=== PATIENT | female | born 1940 | race African-American/Black ===

== ENCOUNTER 2018-11-05 15:31 | Inpatient (IN) | payer MEDICARE, OTHER ==
[~2018-11-05] VITALS: Ht 160 cm; Wt 62.8 kg
[2018-11-05] MEDS ORDERED: COLACE100 MG ORAL (15:33)
[2018-11-05] MEDS ORDERED: DEPAKOTE250 MG PO (15:33)
[2018-11-05] MEDS ORDERED: LISINOPRIL10 MG ORAL (15:33)
[2018-11-05] MEDS ORDERED: HYDROCHLOROTHIA25 MG ORAL (15:33)
[2018-11-05] MEDS ORDERED: ATORVASTATIN CA10 MG ORAL (15:33)
[2018-11-05] MEDS ORDERED: METFORMIN HCL1000 M1 ORAL (15:33)
[2018-11-05] MEDS ORDERED: RISPERDAL2 MG ORAL (15:33)
[2018-11-05 15:36] VITALS: BP 114/75
--- NOTE | 2018-11-05 15:36 | NUR ---
ED Nurse Note: PT BROUGHT IN BY EMS FROM [facility] DUE TO POOR ORAL INTAKE SINCE THIS MORNING AND WEAKNESS STARTED LAST NIGHT. SENT BY DR KING. PT IS AWAKE BUT NON VERBAL, WITHDRAWS TO PAINFUL STIMULI SUCH HAND SQUEEZING. SKIN IS DRY AND WARM.
--- NOTE | 2018-11-05 16:02 | NUR ---
ED Nurse Note: COLLECTED BLOOD/URINE THEN SENT.
[2018-11-05 16:27] LABS: APPEARANCE,URINE CLEAR; BILIRUBIN, URINE NEGATIVE (NEGATIVE); EOSINOPHILS % (AUTO) 0.8 % (0.0-3.0); GLUCOSE, URINE (UA) NEGATIVE (NEGATIVE); HEMATOCRIT 34.7 % (37.0-47.0); HEMOGLOBIN 11.7 G/DL (12.0-16.0); KETONES,URINE 2+ (NEGATIVE); LEUKOCYTE ESTERASE ,URINE NEGATIVE (NEGATIVE); MEAN CORPUSCULAR VOLUME 89 FL (80-99); MONOCYTES % (AUTO) 7.4 % (1.0-10.0); NEUTROPHILS % (AUTO) 67.8 % (45.0-75.0); NITRITE,URINE NEGATIVE (NEGATIVE); PH,URINE 5 (4.5-8.0); PLATELET COUNT 183 K/UL (150-450); PROTEIN,URINE NEGATIVE (NEGATIVE); RED BLOOD COUNT 3.89 M/UL (4.20-5.40); RED CELL DISTRIBUTION WIDTH 12.7 % (11.6-14.8); UROBILINOGEN,URINE 1 MG/DL (0.0-1.0); WHITE BLOOD COUNT 6.7 K/UL (4.8-10.8)
[2018-11-05 16:28] LABS: COLOR,URINE YELLOW
--- NOTE | 2018-11-05 16:28 | Emergency Room Report ---
History of Present Illness General Chief Complaint: Generalized Weakness Source: Medical Record, EMS Present Illness HPI 78-year-old female history of dementia presents with failure to thrive, refusing to eat unknown start time, no aggravating or alleviating factors, severity is severe, history is limited secondary to patient's condition, spoke with Dr. Cole who wants patient evaluated Allergies: Coded Allergies: No Known Allergies (Unverified , 11/05/18) Patient History Limited by: medical condition - Dementia Past Medical History: see triage record Now: No Reviewed Nursing Documentation: PMH: Agreed; PSxH: Agreed Nursing Documentation-PMH Past Medical History: No History, Except For Hx Hypertension: Yes Hx COPD: Yes Hx Diabetes: Yes History Of Psychiatric Problem: Yes - PSYCHOSIS Review of Systems All Other Systems: limited - Dementia Physical Exam Vital Signs Date Time Temp Pulse Resp B/P (MAP) Pulse Ox O2 Delivery O2 Flow Rate FiO2 11/05/18 15:26 98.1 91 18 107/74 (85) 99 Room Air Sp02 EP Interpretation: reviewed, normal General Appearance: no apparent distress, alert Head: normocephalic, atraumatic Eyes: bilateral eye PERRL, bilateral eye EOMI ENT: uvula midline, dry mucus membranes Neck: supple, thyroid normal, supple/symm/no masses Respiratory: lungs clear, no respiratory distress, no retraction, no accessory muscle use Cardiovascular #1: normal peripheral pulses, regular rate, rhythm, no edema, no gallop, no murmur Gastrointestinal: non tender, soft, no guarding, no rebound Musculoskeletal: normal inspection Neurologic: alert, responsive, other - Says yes sometimes, refusing to answer questions Psychiatric: mood/affect normal Skin: no rash, warm/dry Medical Decision Making Diagnostic Impression: Primary Impression: Failure to thrive in adult Additional Impressions: General weakness Dehydration ER Course 78-year-old female presenting with altered mental status, dementia, refusing to eat, ketones positive, labs show dehydration and ketones in the urine, will admit patient for IV fluids and hydration, patient endorsed to Dr. Cole at 4: 46pm Laboratory Tests Test 11/05/18 15:50 White Blood Count 6.7 K/UL (4.8-10.8) Red Blood Count 3.89 M/UL (4.20-5.40) L Hemoglobin 11.7 G/DL (12.0-16.0) L Hematocrit 34.7 % (37.0-47.0) L Mean Corpuscular Volume 89 FL (80-99) Mean Corpuscular Hemoglobin 30.0 PG (27.0-31.0) Mean Corpuscular Hemoglobin Concent 33.6 G/DL (32.0-36.0) Red Cell Distribution Width 12.7 % (11.6-14.8) Platelet Count 183 K/UL (150-450) Mean Platelet Volume 6.9 FL (6.5-10.1) Neutrophils (%) (Auto) 67.8 % (45.0-75.0) Lymphocytes (%) (Auto) 23.0 % (20.0-45.0) Monocytes (%) (Auto) 7.4 % (1.0-10.0) Eosinophils (%) (Auto) 0.8 % (0.0-3.0) Basophils (%) (Auto) 1.0 % (0.0-2.0) Prothrombin Time 10.0 SEC (9.30-11.50) Prothrombin Time INR 0.9 (0.9-1.1) PTT 28 SEC (23-33) Urine Color Yellow Urine Appearance Clear Urine pH 5 (4.5-8.0) Urine Specific [place] 1.020 (1.005-1.035) Urine Protein Negative (NEGATIVE) Urine Glucose (UA) Negative (NEGATIVE) Urine Ketones 2+ (NEGATIVE) H Urine Blood Negative (NEGATIVE) Urine Nitrite Negative (NEGATIVE) Urine Bilirubin Negative (NEGATIVE) Urine Urobilinogen 1 MG/DL (0.0-1.0) H Urine Leukocyte Esterase Negative (NEGATIVE) Sodium Level 145 MMOL/L (136-145) Potassium Level 3.7 MMOL/L (3.5-5.1) Chloride Level 104 MMOL/L (98-107) Carbon Dioxide Level 36 MMOL/L (21-32) H Anion Gap 5 mmol/L (5-15) Blood Urea Nitrogen 23 mg/dL (7-18) H Creatinine 1.0 MG/DL (0.55-1.30) Estimate Glomerular Filtration Rate mL/min (>60) Glucose Level 91 MG/DL (74-106) Lactic Acid Level 1.10 mmol/L (0.4-2.0) Calcium Level 9.7 MG/DL (8.5-10.1) Phosphorus Level 3.3 MG/DL (2.5-4.9) Magnesium Level 1.6 MG/DL (1.8-2.4) L Total Bilirubin 0.4 MG/DL (0.2-1.0) Aspartate Amino Transferase (AST) 21 U/L (15-37) Alanine Aminotransferase (ALT) 11 U/L (12-78) L Alkaline Phosphatase 55 U/L (46-116) Total Creatine Kinase 217 U/L (26-308) Creatine Kinase MB 3.9 NG/ML (0.0-3.6) H Creatine Kinase MB Relative Index 1.7 Troponin I 0.006 ng/mL (0.000-0.056) Pro-B-Type Natriuretic Peptide 61 pg/mL (0-125) Total Protein 6.8 G/DL (6.4-8.2) Albumin 3.0 G/DL (3.4-5.0) L Globulin 3.8 g/dL Albumin/Globulin Ratio 0.8 (1.0-2.7) L Lipase 81 U/L (73-393) EKG Diagnostic Results EKG Time: 15:41 EP Interpretation: NSR rate 86, qtc 437, no acute st elevations, normal axis Rate: normal Rhythm: NSR ST Segments: no acute changes ASA given to the pt in ED: No Rhythm Strip Diag. Results Rhythm Strip Time: 16:28 EP Interpretation: yes Rate: 76 Rhythm: NSR, no PVC's, no ectopy Chest X-Ray Diagnostic Results Chest X-Ray Diagnostic Results : Chest X-Ray Ordered: Yes # of Views/Limited/Complete: 1 View Indication: Other - failure to thrive EP Interpretation: Yes Interpretation: no consolidation, no effusion, no pneumothorax, no acute cardiopulmonary disease Impression: No acute disease Electronically Signed by: Umesh Huerta MD Last Vital Signs Date Time Temp Pulse Resp B/P (MAP) Pulse Ox O2 Delivery O2 Flow Rate FiO2 11/05/18 15:36 89 14 Room Air 11/05/18 15:36 98.4 114/75 100 Disposition: ADMITTED INPATIENT Condition: Stable Referrals: Marvin Cole MD (PCP) Umesh Huerta MD Nov 05, 2018 16:28
[2018-11-05 16:31] LABS: ANION GAP 5 mmol/L (5-15); BLOOD UREA NITROGEN 23 mg/dL (7-18); CALCIUM 9.7 MG/DL (8.5-10.1); CARBON DIOXIDE 36 MMOL/L (21-32); CHLORIDE 104 MMOL/L (98-107); INR 0.9 (0.9-1.1); POTASSIUM 3.7 MMOL/L (3.5-5.1); SODIUM 145 MMOL/L (136-145)
[2018-11-05 16:45] LABS: ALANINE AMINOTRANSFERASE 11 U/L (12-78); ALBUMIN/GLOBULIN RATIO 0.8 (1.0-2.7); ALKALINE PHOSPHATASE 55 U/L (46-116); ASPARTATE AMINO TRANSFERASE 21 U/L (15-37); BILIRUBIN,TOTAL 0.4 MG/DL (0.2-1.0); CKMB 3.9 NG/ML (0.0-3.6); CREATINE KINASE 217 U/L (26-308); PHOSPHORUS 3.3 MG/DL (2.5-4.9)
[2018-11-05 17:30] VITALS: BP 128/84
--- NOTE | 2018-11-05 17:48 | Diagnostic Imaging Report ---
Indication: Chest pain Technique: One view of the chest Comparison: none Findings: No acute infiltrates, effusions, or congestion. Tortuous calcified aorta. Normal heart size. Upper mediastinum unremarkable. Impression: No acute process.
--- NOTE | 2018-11-05 18:11 | NUR ---
ED Nurse Note: REPORT GIVEN TO ERICK DIOP [address]
--- NOTE | 2018-11-05 18:22 | NUR ---
ED Nurse Note: PT TRANSFERRED TO MED SURG UNIT WITH [facility] MACHINE OPERATOR AND BELONGINGS SENT. VSS.
--- NOTE | 2018-11-05 18:42 | NUR ---
NURSE NOTES: Received pt from ED @1830. pt awake, A/O x 0, nonverbal, calm. no SOB noted. healed sacral ulcer noted, optifoam on. bed in low position, bed alarm on. will give report to oncoming nurse.
[2018-11-05 18:48] VITALS: BP 113/69
--- NOTE | 2018-11-05 19:13 | NUR ---
CASE MANAGEMENT: REVIEW 78Y/F BIBA FROM [facility] CC: GENERALIZED WEAKNESS . REFUSING TO EAT SI: FAILURE TO THRIVE . DEHYDRATION T 98.4 HR 75 RR 14 BP 107/74 SAT 99% ROOM AIR H/H 11.7/34.7 BUN 23 MAG 1.6 IS: NS IVF BOLUS X1 PATIENT ADMITTED TO MED/SURG UNIT 11/05/2018 DCP: PATIENT IS FROM [facility]
--- NOTE | 2018-11-05 19:44 | NUR ---
NURSE NOTES: Received patient from CHIKIS Lovelace. Pt is fatigue and resting in bed. AAO x 0, nonverbal. On room air. Pt is on fall precaution, sz precaution, and aspiration precaution. Swaps pending. IV on L FA intact. Noted healed sacral ulcer. Dr. Saavedra visited pt and received admission order. Bed locked, lowest position, alarm on, side rails up x 2, call light within reach. Will continue to monitor.
[2018-11-05 20:00] VITALS: BP 116/55
--- NOTE | 2018-11-05 20:31 | NUR ---
NURSE NOTES: Pt noted bradycardia 47 apical pulse manually @ 2014. Blood sugar 77, 95% O2, 95.7F, 116/55BP. Notified Dr. Cole. Waiting for call back.
--- NOTE | 2018-11-05 20:40 | NUR ---
NURSE NOTES: Per Dr. Cole, let Dr. Main know that pt has bradycardia. Called Dr. Main and received order for TSH, troponin, and 2D echo in the morning. Per Dr. Main, transfer pt to [facility]. Addendum: 11/06/18 at 0007 by EMMA MATOS RN RN NURSE NOTES: Dr. Main ordered EKG as well.
[2018-11-05] MEDS: NovoLOG Insulin Flexpen SUBQ SCH (21:00)
--- NOTE | 2018-11-05 21:35 | NUR ---
NURSE NOTES: Per Dr. Main order, Pt is emergent transferred to tele room 220-2. Report given to CHIKIS Marlow and endorsed taking wound picture. Pt is awake, calm, but not verbal responsive. All belongings are with pt.
[2018-11-05 21:45] VITALS: BP 117/67
--- NOTE | 2018-11-05 21:45 | NUR ---
NURSE NOTES: Received patient from [facility]. Patient on room air, apical pulse 58, placed on diagnostic cardiac sonographer, sinus rhythm, LFA IV #20 intact, patent, no infiltration, 1/2NS infusing at 70ml/hr. SCDs off pending venous duplex. Patient is resistant to care, occasionally verbalizing a few words such as "what are you doing?" Patient does not respond to direct questioning. Unable to assess orientation. Bed alarm on, locked in low position, call light within reach.
--- NOTE | 2018-11-05 22:15 | NUR ---
NURSE NOTES: EKG completed, sinus rhythm. Patient moved to room closer to nurse's station. Patient is a fall risk. On seizure precautions, rails padded.
--- NOTE | 2018-11-05 23:30 | History and Physical Report ---
DATE OF ADMISSION: 11/05/2018 HISTORY OF PRESENT ILLNESS: The patient is nonverbal. . The patient is also contracted. The patient is admitted for dehydration, electrolyte abnormality, hypotension, not eating, and UTI. Again, cannot get any history from the patient. PAST MEDICAL HISTORY: Organic brain syndrome, mood disorder, constipation, hypertension, NIDDM, psychosis, contractures, hyperlipidemia. PAST SURGICAL HISTORY: None known. ALLERGIES: No known allergies. MEDICATIONS: Lipitor, Depakote, Colace, hydrochlorothiazide, lisinopril, metformin, Risperdal. FAMILY HISTORY: Noncontributory. SOCIAL HISTORY: Denies history of smoking, alcohol, or illicit drugs; however, the patient is a poor historian. REVIEW OF SYSTEMS: The patient is a poor historian, cannot rely up on that. PHYSICAL EXAMINATION: VITAL SIGNS: Temperature 98.1, pulse 91, blood pressure 107/75. HEENT: PERRLA. NECK: Supple. No lymphadenopathy. CHEST: Clear to auscultation. CARDIOVASCULAR: Regular rate and rhythm. No murmurs or extra sounds. GASTROINTESTINAL: Soft. Distended. Positive bowel sounds. No organomegaly. Abdomen is soft. EXTREMITIES: No edema. Reflexes equal on both sides. NEUROLOGIC: Non-oriented. The patient is mostly nonverbal. LABORATORY DATA: WBC of 6.7, hemoglobin 11.7, platelets 183. Sodium 145, potassium 3.7, BUN of 23, creatinine 1, glucose of 91. ASSESSMENT AND PLAN: UTI, dehydration, hypotension, electrolyte imbalance. I have asked basically Dr. Main, Dr. Tom Starks, Dr. Jeff, and Dr. Moreira to see the patient for the above-mentioned diagnoses and treatment as well as for bradycardia. Marvin Cole M.D. DR: ELIESER JOB#: [id number] CC:
[2018-11-06] VITALS: BP 119/59
[2018-11-06 04:00] VITALS: BP 114/60
[2018-11-06] MEDS: NovoLOG Insulin Flexpen SUBQ SCH ×4 (06:30→20:57)
--- NOTE | 2018-11-06 06:44 | NUR ---
NURSE NOTES: Blood sugar 57, LOC at baseline. Administered D50 IVP.
--- NOTE | 2018-11-06 07:06 | NUR ---
NURSE NOTES: Blood sugar 187.
[2018-11-06 07:40] LABS: BASOPHILS % (AUTO) 1.2 % (0.0-2.0); EOSINOPHILS % (AUTO) 3.2 % (0.0-3.0); HEMATOCRIT 32.7 % (37.0-47.0); HEMOGLOBIN 10.5 G/DL (12.0-16.0); LYMPHOCYTES % (AUTO) 23.5 % (20.0-45.0); MEAN CORPUSCULAR VOLUME 92 FL (80-99); MONOCYTES % (AUTO) 11.4 % (1.0-10.0); NEUTROPHILS % (AUTO) 60.8 % (45.0-75.0); PLATELET COUNT 161 K/UL (150-450); RED BLOOD COUNT 3.55 M/UL (4.20-5.40); RED CELL DISTRIBUTION WIDTH 13.3 % (11.6-14.8); WHITE BLOOD COUNT 5.2 K/UL (4.8-10.8)
--- NOTE | 2018-11-06 07:58 | NUR ---
HAND-OFF: Report given to [place] DIOP.
[2018-11-06 08:00] VITALS: BP 126/81
--- NOTE | 2018-11-06 08:00 | NUR ---
NURSE NOTES: Received report from Kashmir/RN, Patient is awake, AO x 2. No acute distress noted. IV site intact, no bleeding or infiltration noted. Patient has history of seizure, bed padded, all seizure precaution in place. Bed in low position and locked. Call light and personal belonging within reach. Will continue plan of care.
[2018-11-06 08:10] LABS: ALANINE AMINOTRANSFERASE 11 U/L (12-78); ALBUMIN 2.7 G/DL (3.4-5.0); ALBUMIN/GLOBULIN RATIO 0.8 (1.0-2.7); ALKALINE PHOSPHATASE 48 U/L (46-116); ANION GAP 4 mmol/L (5-15); ASPARTATE AMINO TRANSFERASE 19 U/L (15-37); BILIRUBIN,TOTAL 0.4 MG/DL (0.2-1.0); BLOOD UREA NITROGEN 20 mg/dL (7-18); CALCIUM 9.3 MG/DL (8.5-10.1); CARBON DIOXIDE 34 MMOL/L (21-32); CHLORIDE 105 MMOL/L (98-107); CREATININE 0.8 MG/DL (0.55-1.30); POTASSIUM 3.5 MMOL/L (3.5-5.1); SODIUM 142 MMOL/L (136-145)
--- NOTE | 2018-11-06 08:50 | NUR ---
NURSE NOTES: Patient refused Colace.
[2018-11-06] MEDS ORDERED: Docusate 250mg cap ORAL SCH (09:00)
--- NOTE | 2018-11-06 11:20 | General Progress Note ---
Progress Note Progress Note pt seen and examined full note dictated nurse on her bedside plan was discussed Maday Moreira MD Nov 06, 2018 11:20
[2018-11-06] MEDS ORDERED: D5 1/2NS 1,000 ML IV SCH (11:30)
--- NOTE | 2018-11-06 11:34 | NUR ---
NURSE NOTES: Patient refused 2D Echo.
[2018-11-06 12:00] VITALS: BP 127/63
--- NOTE | 2018-11-06 12:15 | NUR ---
NURSE NOTES: Patient became hypoglycemic 64, Dextrose 50% 25ml given.
--- NOTE | 2018-11-06 12:40 | NUR ---
NURSE NOTES: Check back blood sugar, and it's 119
--- NOTE | 2018-11-06 12:43 | NUR ---
CARDIOLOGY Patient was combative. Unable to do 2D echo.
--- NOTE | 2018-11-06 14:15 | Consultation ---
DATE OF CONSULTATION: 11/06/2018 CONSULTING PHYSICIAN: Chino Jeff M.D. CHIEF COMPLAINT: Failure to thrive. HISTORY OF PRESENT ILLNESS: Most of the history per chart. This is a 78-year-old female with past medical history of dementia, hypertension, and questionable diabetes, was referred to the hospital because mainly she was not eating and she was referred for failure to thrive. PAST MEDICAL HISTORY: 1. Dementia. 2. Hypertension. 3. Questionable diabetes. ALLERGIES: No known allergies. MEDICATIONS: Please see medication reconciliation list. SOCIAL HISTORY: She currently lives in a [facility]. No recent history of tobacco, alcohol, or IV drug abuse. PAST SURGICAL HISTORY: Unknown. REVIEW OF SYSTEMS: Unable to obtain. PHYSICAL EXAMINATION: VITAL SIGNS: Temperature 97.5, pulse 61, respirations 18, blood pressure is 126/81. HEENT: Normocephalic and atraumatic. Mild pale conjunctivae. NECK: Supple. No evidence of obvious lymphadenopathy. CARDIOVASCULAR: Regular rhythm. Plus S1 and S2. LUNGS: Decreased breath sounds bilaterally based on the supine exam. ABDOMEN: Soft, nontender. No rebound. No guarding. No peritoneal signs. EXTREMITIES: No cyanosis, no clubbing, no edema. LABORATORY DATA: White count is 5.2, hemoglobin 10.5, hematocrit 32, platelet count is 161. Albumin is low at 2.7. BUN is 20, creatinine is 0.8. ASSESSMENT AND PLAN: This is a 78-year-old female with anemia, failure to thrive, dementia. Plan, anemia workup. Encourage eating. Monitor for p.o. intake. The patient most probably will need a G-tube placement given this evidence of hypoalbuminemia, anemia, malnutrition, and dehydration. Plan to get a consent and place it on Thursday if consent is obtainable. I want to thank, Dr. Marvin Cole, for this kind referral. Chino Jeff M.D. DR: FLOR JOB#: [id number] CC: Marvin Cole M.D.; Fax#: [phone]
--- NOTE | 2018-11-06 14:58 | Cardiac Electrophysiology PN ---
Subjective Subjective [id number] Objective Last 24 Hour Vital Signs Date Time Temp Pulse Resp B/P (MAP) Pulse Ox O2 Delivery O2 Flow Rate FiO2 11/06/18 12:00 55 11/06/18 12:00 97.3 52 18 127/63 (84) 96 11/06/18 09:00 Room Air 11/06/18 08:00 53 11/06/18 08:00 97.5 61 18 126/81 (96) 92 11/06/18 04:00 96.8 66 18 114/60 (78) 96 11/06/18 03:41 56 11/06/18 00:00 96.9 62 18 119/59 (79) 97 11/05/18 23:31 57 11/05/18 21:47 60 11/05/18 21:45 97.4 57 18 117/67 (84) 11/05/18 21:00 Room Air 11/05/18 20:00 95.7 45 16 116/55 (75) 95 11/05/18 18:48 98.2 80 18 113/69 (84) 98 11/05/18 18:47 Room Air 11/05/18 18:22 98.5 79 17 122/78 98 Room Air 11/05/18 17:30 98.2 75 19 128/84 99 Room Air 11/05/18 15:36 89 14 Room Air 11/05/18 15:36 98.4 89 14 114/75 100 Room Air 11/05/18 15:26 98.1 91 18 107/74 (85) 99 Room Air Intake and Output 11/05/18 11/06/18 19:00 07:00 Intake Total 1000 ml Balance 1000 ml Intake IV Total 1000 ml # Voids 1 2 Laboratory Tests Test 11/05/18 15:50 11/06/18 06:39 White Blood Count 6.7 K/UL (4.8-10.8) 5.2 K/UL (4.8-10.8) Red Blood Count 3.89 M/UL (4.20-5.40) L 3.55 M/UL (4.20-5.40) L Hemoglobin 11.7 G/DL (12.0-16.0) L 10.5 G/DL (12.0-16.0) L Hematocrit 34.7 % (37.0-47.0) L 32.7 % (37.0-47.0) L Mean Corpuscular Volume 89 FL (80-99) 92 FL (80-99) Mean Corpuscular Hemoglobin 30.0 PG (27.0-31.0) 29.6 PG (27.0-31.0) Mean Corpuscular Hemoglobin Concent 33.6 G/DL (32.0-36.0) 32.1 G/DL (32.0-36.0) Red Cell Distribution Width 12.7 % (11.6-14.8) 13.3 % (11.6-14.8) Platelet Count 183 K/UL (150-450) 161 K/UL (150-450) Mean Platelet Volume 6.9 FL (6.5-10.1) 6.2 FL (6.5-10.1) L Neutrophils (%) (Auto) 67.8 % (45.0-75.0) 60.8 % (45.0-75.0) Lymphocytes (%) (Auto) 23.0 % (20.0-45.0) 23.5 % (20.0-45.0) Monocytes (%) (Auto) 7.4 % (1.0-10.0) 11.4 % (1.0-10.0) H Eosinophils (%) (Auto) 0.8 % (0.0-3.0) 3.2 % (0.0-3.0) H Basophils (%) (Auto) 1.0 % (0.0-2.0) 1.2 % (0.0-2.0) Prothrombin Time 10.0 SEC (9.30-11.50) Prothromb Time International Ratio 0.9 (0.9-1.1) Activated Partial Thromboplast Time 28 SEC (23-33) Urine Color Yellow Urine Appearance Clear Urine pH 5 (4.5-8.0) Urine Specific [place] 1.020 (1.005-1.035) Urine Protein Negative (NEGATIVE) Urine Glucose (UA) Negative (NEGATIVE) Urine Ketones 2+ (NEGATIVE) H Urine Blood Negative (NEGATIVE) Urine Nitrite Negative (NEGATIVE) Urine Bilirubin Negative (NEGATIVE) Urine Urobilinogen 1 MG/DL (0.0-1.0) H Urine Leukocyte Esterase Negative (NEGATIVE) Sodium Level 145 MMOL/L (136-145) 142 MMOL/L (136-145) Potassium Level 3.7 MMOL/L (3.5-5.1) 3.5 MMOL/L (3.5-5.1) Chloride Level 104 MMOL/L (98-107) 105 MMOL/L (98-107) Carbon Dioxide Level 36 MMOL/L (21-32) H 34 MMOL/L (21-32) H Anion Gap 5 mmol/L (5-15) 4 mmol/L (5-15) L Blood Urea Nitrogen 23 mg/dL (7-18) H 20 mg/dL (7-18) H Creatinine 1.0 MG/DL (0.55-1.30) 0.8 MG/DL (0.55-1.30) Estimat Glomerular Filtration Rate mL/min (>60) mL/min (>60) Glucose Level 91 MG/DL (74-106) 63 MG/DL (74-106) L Hemoglobin A1c 5.4 % (4.3-6.0) Lactic Acid Level 1.10 mmol/L (0.4-2.0) Calcium Level 9.7 MG/DL (8.5-10.1) 9.3 MG/DL (8.5-10.1) Phosphorus Level 3.3 MG/DL (2.5-4.9) Magnesium Level 1.6 MG/DL (1.8-2.4) L Total Bilirubin 0.4 MG/DL (0.2-1.0) 0.4 MG/DL (0.2-1.0) Aspartate Amino Transf (AST/SGOT) 21 U/L (15-37) 19 U/L (15-37) Alanine Aminotransferase (ALT/SGPT) 11 U/L (12-78) L 11 U/L (12-78) L Alkaline Phosphatase 55 U/L (46-116) 48 U/L (46-116) Total Creatine Kinase 217 U/L (26-308) Creatine Kinase MB 3.9 NG/ML (0.0-3.6) H Creatine Kinase MB Relative Index 1.7 Troponin I 0.006 ng/mL (0.000-0.056) 0.011 ng/mL (0.000-0.056) Pro-B-Type Natriuretic Peptide 61 pg/mL (0-125) Total Protein 6.8 G/DL (6.4-8.2) 5.9 G/DL (6.4-8.2) L Albumin 3.0 G/DL (3.4-5.0) L 2.7 G/DL (3.4-5.0) L Globulin 3.8 g/dL 3.2 g/dL Albumin/Globulin Ratio 0.8 (1.0-2.7) L 0.8 (1.0-2.7) L Lipase 81 U/L (73-393) Thyroid Stimulating Hormone (TSH) 1.438 uiU/mL (0.358-3.740) Michael Main MD Nov 06, 2018 14:58
[2018-11-06 16:00] VITALS: BP 108/60
--- NOTE | 2018-11-06 19:14 | NUR ---
HAND-OFF: Report given to Rhiannon/RN, Patient is in stable condition, Endorsed plan of care.
[2018-11-06 20:00] VITALS: BP 158/71
--- NOTE | 2018-11-06 20:00 | NUR ---
NURSE NOTES: RECEIVED PATIENT LYING IN BED, AWAKE, ALERT/ORIENTED TO PERSON, NOTED WITH DELAYED SPEECH, REALITY ORIENTATION PROVIDED DURING ASSESSMENT, DENIES PAIN, NO SIGNS AND SYMPTOMS OF ACUTE CARDIO RESPIRATORY DISTRESS/SHORTNESS OF BREATH, NO PERIPHERAL EDEMA NOTED. IV SITE INTACT TO LEFT FOREARM/GAUGE 20, NO REDNESS/SWELLING NOTED, TOLERATING IV FLUIDS. ABDOMEN SOFT/NON DISTENDED/NON TENDER/BOWEL SOUNDS AUDIBLE, NO REPORT OF N/V/D. COMFORT CARE PROVIDED. SIDE RAILS UP X3/BED IN LOWEST POSITION FOR SAFETY. CALL LIGHT WITHIN REACH, FREQUENT ROUNDING FOR SAFETY/NEEDS. NAD.
--- NOTE | 2018-11-06 22:15 | Consultation ---
DATE OF CONSULTATION: 11/06/2018 NEPHROLOGY CONSULTATION CONSULTING PHYSICIAN: Maday Moreira M.D. REFERRING PHYSICIAN: Marvin Cole M.D. REASON FOR CONSULTATION: Acute renal failure, hypokalemia. HISTORY OF PRESENT ILLNESS: The patient is an unfortunate 78-year-old, female with past medical history significant for history of diabetes, hypertension, history of hyperlipidemia who was transferred [facility] for evaluation of failure to thrive and dehydration. Upon arrival in the ER, the patient was found to have blood pressure 107/74, pulse was 91, respiratory rate of 18, the patient was afebrile. The patient was then consequently admitted in the hospital, found to be and having acute renal failure. I was called for management of renal disease and electrolyte imbalance. Unfortunately, the patient is not able to provide any history for me so most of my history obtained through reviewing the records. PAST MEDICAL HISTORY: 1. Hypertension. 2. Diabetes. 3. History of dementia. 4. History of COPD. 5. History of psychiatric disease. MEDICATIONS: Medication list was reviewed. ALLERGIES: No known drug allergies. SOCIAL HISTORY: She lives at [facility]. There is no current history of tobacco, alcohol, or drug use. FAMILY HISTORY: Noncontributory. REVIEW OF SYSTEMS: As I mentioned is limited due to patient's condition and mental status. PHYSICAL EXAMINATION: VITAL SIGNS: The patient has temperature of 96, blood pressure 108/60, pulse rate of 50. HEAD AND NECK: Bitemporal wasting. Extraocular movements intact. Pupils are reactive to light and accommodation. Mucous membranes are dry. LUNGS: Clear to auscultation. CARDIAC: Regular rate and rhythm. S1 and S2 normal. No murmurs or rubs. ABDOMEN: Soft, nontender, nondistended. EXTREMITIES: No edema. No clubbing. No cyanosis. LABORATORY AND DIAGNOSTIC DATA: Lab value reveal WBC count of 5.2, hemoglobin of 10.5, hematocrit of 32, platelet count 161,000. Chemistry revealed sodium of 142, potassium 3.5, chloride 105, bicarb 34, BUN of 20, creatinine of 0.8, calcium of 9.3. Total protein of 5.9, albumin of 2.7. TSH is 1.43. UA revealed specific gravity of 1.020, ketones 2+, pH of 5, no WBC, no RBC. ASSESSMENT: 1. Failure to thrive. 2. Prerenal azotemia. 3. Dehydration 4. . 5. Diabetes. PLAN: Plan for the patient to the obtain UA. Check the random urine, protein and creatinine ratio to calculate the proteinuria. Check the urine sodium and creatinine to calculate fractional excretion of sodium. Start the patient on IV fluids. Check the patient for microalbuminuria. Avoid any NSAID and nephrotoxic. At the end, I would like to thank Dr. Cole, for allowing me to participate in the care of this patient. Maday Moreira M.D. DR: Maria Victoria JOB#: [id number] CC:
--- NOTE | 2018-11-06 23:06 | General Progress Note ---
Assessment/Plan Problem List: (1) Dehydration ICD Codes: E86.0 - Dehydration SNOMED: 55478913 (2) General weakness ICD Codes: R53.1 - Weakness SNOMED: 43525288 (3) Failure to thrive in adult ICD Codes: R62.7 - Adult failure to thrive SNOMED: 776362172 (4) Bradycardia ICD Codes: R00.1 - Bradycardia, unspecified SNOMED: 48966415 Status: progressing Assessment/Plan: transferrred to [facility] for bradycardia dehydration FTT poor historian reviewed chart and labs Subjective ROS Limited/Unobtainable: Yes Allergies: Coded Allergies: No Known Allergies (Unverified , 11/05/18) Objective Last 24 Hour Vital Signs Date Time Temp Pulse Resp B/P (MAP) Pulse Ox O2 Delivery O2 Flow Rate FiO2 11/06/18 21:00 Room Air 11/06/18 20:00 97.5 57 18 158/71 (100) 96 11/06/18 16:00 48 11/06/18 16:00 96.4 50 18 108/60 (76) 94 11/06/18 12:00 55 11/06/18 12:00 97.3 52 18 127/63 (84) 96 11/06/18 09:00 Room Air 11/06/18 08:00 53 11/06/18 08:00 97.5 61 18 126/81 (96) 92 11/06/18 04:00 96.8 66 18 114/60 (78) 96 11/06/18 03:41 56 11/06/18 00:00 96.9 62 18 119/59 (79) 97 11/05/18 23:31 57 Intake and Output 11/05/18 11/06/18 19:00 07:00 Intake Total 1000 ml Balance 1000 ml IV Total 1000 ml # Voids 1 2 Laboratory Tests 11/06/18 06:39: White Blood Count 5.2, Red Blood Count 3.55L, Hemoglobin 10.5L, Hematocrit 32.7L , Mean Corpuscular Volume 92, Mean Corpuscular Hemoglobin 29.6, Mean Corpuscular Hemoglobin Concent 32.1, Red Cell Distribution Width 13.3, Platelet Count 161, Mean Platelet Volume 6.2L, Neutrophils (%) (Auto) 60.8, Lymphocytes ( %) (Auto) 23.5, Monocytes (%) (Auto) 11.4H, Eosinophils (%) (Auto) 3.2H, Basophils (%) (Auto) 1.2, Sodium Level 142, Potassium Level 3.5, Chloride Level 105, Carbon Dioxide Level 34H, Anion Gap 4L, Blood Urea Nitrogen 20H, Creatinine 0.8, Estimat Glomerular Filtration Rate , Glucose Level 63L, Calcium Level 9.3, Total Bilirubin 0.4, Aspartate Amino Transf (AST/SGOT) 19, Alanine Aminotransferase (ALT/SGPT) 11L, Alkaline Phosphatase 48, Troponin I 0.011, Total Protein 5.9L, Albumin 2.7L, Globulin 3.2, Albumin/Globulin Ratio 0.8L, Thyroid Stimulating Hormone (TSH) 1.438 Height (Feet): 5 Height (Inches): 4.00 Weight (Pounds): 110 Cardiovascular: normal rate Respiratory/Chest: lungs clear Marvin Cole MD Nov 06, 2018 23:06
[2018-11-07] VITALS: BP 121/82
[2018-11-07] MEDS: D5 1/2NS 1,000 ML IV SCH ×2 (01:28→15:03)
--- NOTE | 2018-11-07 02:30 | Consultation ---
DATE OF CONSULTATION: 11/06/2018 "NOTE: POOR AUDIO QUALITY" ENDOCRINOLOGY CONSULTATION CONSULTING PHYSICIAN: Naveen Sebastian M.D. REFERRING PHYSICIAN: Marvin Cole M.D. REASON FOR CONSULTATION: I was asked to see this 78-year-old white female referred by Dr. Marvin Cole in Endocrinology consultation for evaluation and management of type 2 diabetes mellitus MEDICATIONS: Metformin 1000 mg p.o. b.i.d., lisinopril 20 mg, Lipitor 10 mg, daily. FAMILY HISTORY: Unable to be determined. PERSONAL HISTORY: Unable to be determined. REVIEW OF SYSTEMS: Unable to be determined. PHYSICAL EXAMINATION: GENERAL: The patient is in no acute distress. VITAL SIGNS: Blood pressure is 150/70, pulse 57, respiratory rate 18_, and weight was _70_ kg. HEAD AND NECK: Unremarkable. LUNGS: Clear. HEART: Heart sounds regular. ABDOMEN: Scaphoid. Bowel sounds present. EXTREMITIES: No edema. NEUROLOGICAL: Intact with toes downgoing to plantar stimulation. LABORATORY DATA: Glucose 137 mg%_. ASSESSMENT: 1. Diabetes mellitus type 2 in good control. 2. Malnutrition. 3. Hypertension, currently controlled. PLAN: We will give _Metformin 1000 mg po BID.Hba1c in am. Naveen Sebastian M.D. DR: ANAIS JOB#: [id number] CC: LUISA
--- NOTE | 2018-11-07 03:00 | Consultation ---
DATE OF CONSULTATION: 11/06/2018 CARDIOLOGY CONSULTATION CONSULTING PHYSICIAN: Michael Main M.D. REFERRING PHYSICIAN: Marvin Cole M.D. REASON FOR CONSULTATION: Management of bradycardia and hypotension. HISTORY OF PRESENT ILLNESS: The patient is a 78-year-old lady with history of dementia who was brought in for refusal to eat and cachexia. The patient was evaluated in the ER. The patient admitted with bradycardia, heart rate up to 50s and was also hypotensive. The patient received IV fluids and her blood pressure improved. At the time of my evaluation, the patient is confused and unable to provide any information. REVIEW OF SYSTEMS: Cannot be obtained but the patient is confused does not even know she is in the hospital. PAST MEDICAL HISTORY: As mentioned above. FAMILY HISTORY: Noncontributory. SOCIAL HISTORY: Does not smoke or drink alcohol. PHYSICAL EXAMINATION: VITAL SIGNS: Blood pressure 127/63, pulse rate 52, respirations 18, and temperature 97.3. HEAD AND NECK: No JVD. LUNGS: Coarse rhonchi. CARDIOVASCULAR: Regular S1 and S2 with no gallop or murmur. ABDOMEN: Soft. EXTREMITIES: No pitting edema. LABORATORY AND DIAGNOSTIC DATA: White count 5.2, hemoglobin 10.5, hematocrit 32.7, and platelet count 161,000. Sodium 142, potassium , BUN of 20, creatinine 0.8 and glucose . Troponin negative x2. ASSESSMENT AND PLAN: 1. Weakness. The patient was ruled out for myocardial infarction. EKGs though read as bradycardic. No significant ST-T wave abnormality. The patient refused echocardiogram. The patient is getting IV hydration. 2. Hypotension, resolved with IV fluids, likely dehydrated. 3. Failure to thrive. Further evaluation by Dr. Jeff. Consult for PEG placement is pending. Thank you very much, Dr. Cole, for allowing me to participate in the care of this patient. Please do not hesitate to contact me for any questions regarding my evaluation. Michael Main M.D. DR: ROSHNI JOB#: [id number] CC:
[2018-11-07 04:00] VITALS: BP 144/75
--- NOTE | 2018-11-07 04:15 | NUR ---
NURSE NOTES: HEART RATE 43 ON MONITOR, MANUAL ASSESSMENT 52 BPM, WILL CONTINUE TO MONITOR.
[2018-11-07] MEDS: NovoLOG Insulin Flexpen SUBQ SCH ×4 (05:44→21:00)
--- NOTE | 2018-11-07 06:05 | NUR ---
NURSE NOTES: BLOOD GLUCOSE LEVEL MONITORED VIA GLUCOMETER WITH RESULT 94MG/DL, ASYMPTOMATIC, NO SLIDING SCALE COVERAGE. CONTINUE WITH CURRENT PLAN OF CARE. NAD.
--- NOTE | 2018-11-07 06:12 | General Progress Note ---
Assessment/Plan Problem List: (1) Failure to thrive in adult ICD Codes: R62.7 - Adult failure to thrive SNOMED: 700036176 (2) Bradycardia ICD Codes: R00.1 - Bradycardia, unspecified SNOMED: 02457108 (3) General weakness ICD Codes: R53.1 - Weakness SNOMED: 05854434 (4) Dehydration ICD Codes: E86.0 - Dehydration SNOMED: 10209907 Status: progressing Assessment/Plan: pending PEG for tomorrow recent labs and notes reviewed Subjective ROS Limited/Unobtainable: No Allergies: Coded Allergies: No Known Allergies (Unverified , 11/05/18) Objective Last 24 Hour Vital Signs Date Time Temp Pulse Resp B/P (MAP) Pulse Ox O2 Delivery O2 Flow Rate FiO2 11/07/18 04:00 43 11/07/18 04:00 97.4 65 16 144/75 (98) 99 11/07/18 00:00 66 11/07/18 00:00 97.5 67 18 121/82 (95) 100 11/06/18 21:00 Room Air 11/06/18 20:00 97.5 57 18 158/71 (100) 96 11/06/18 16:00 48 11/06/18 16:00 96.4 50 18 108/60 (76) 94 11/06/18 12:00 55 11/06/18 12:00 97.3 52 18 127/63 (84) 96 11/06/18 09:00 Room Air 11/06/18 08:00 53 11/06/18 08:00 97.5 61 18 126/81 (96) 92 Intake and Output 11/06/18 11/07/18 18:59 06:59 Intake Total 810 ml 680 ml Output Total 300 ml 3 ml Balance 510 ml 677 ml Intake Oral 120 ml 120 ml IV Total 690 ml 560 ml Output Urine Total 300 ml 3 ml # Voids 1 Laboratory Tests 11/06/18 06:39: White Blood Count 5.2, Red Blood Count 3.55L, Hemoglobin 10.5L, Hematocrit 32.7L , Mean Corpuscular Volume 92, Mean Corpuscular Hemoglobin 29.6, Mean Corpuscular Hemoglobin Concent 32.1, Red Cell Distribution Width 13.3, Platelet Count 161, Mean Platelet Volume 6.2L, Neutrophils (%) (Auto) 60.8, Lymphocytes ( %) (Auto) 23.5, Monocytes (%) (Auto) 11.4H, Eosinophils (%) (Auto) 3.2H, Basophils (%) (Auto) 1.2, Sodium Level 142, Potassium Level 3.5, Chloride Level 105, Carbon Dioxide Level 34H, Anion Gap 4L, Blood Urea Nitrogen 20H, Creatinine 0.8, Estimat Glomerular Filtration Rate , Glucose Level 63L, Calcium Level 9.3, Total Bilirubin 0.4, Aspartate Amino Transf (AST/SGOT) 19, Alanine Aminotransferase (ALT/SGPT) 11L, Alkaline Phosphatase 48, Troponin I 0.011, Total Protein 5.9L, Albumin 2.7L, Globulin 3.2, Albumin/Globulin Ratio 0.8L, Thyroid Stimulating Hormone (TSH) 1.438 Height (Feet): 5 Height (Inches): 4.00 Weight (Pounds): 110 General Appearance: no apparent distress EENT: normal ENT inspection Neck: normal alignment, supple Cardiovascular: normal rate Respiratory/Chest: decreased breath sounds Abdomen: normal bowel sounds, non tender, soft Extremities: non-tender Chino Jeff MD Nov 07, 2018 06:12
--- NOTE | 2018-11-07 07:33 | NUR ---
HAND-OFF: Report given to CHIKIS Myles. Patient in stable condition, plan of care endorsed.
--- NOTE | 2018-11-07 07:49 | NUR ---
NURSE NOTES: Received patient from Promise Jurado. Patient in bed resting comfortably. No s/s of pain or discomfort. Safety precaution in place. Call hale within patients reach. Bed locked to lowest position. Side rail up X2 and padded. Will continue to monito.
[2018-11-07 08:00] VITALS: BP 127/57
[2018-11-07 08:04] LABS: BASOPHILS % (AUTO) 0.6 % (0.0-2.0); EOSINOPHILS % (AUTO) 2.6 % (0.0-3.0); HEMATOCRIT 36.3 % (37.0-47.0); HEMOGLOBIN 11.9 G/DL (12.0-16.0); MEAN CORPUSCULAR VOLUME 91 FL (80-99); MONOCYTES % (AUTO) 14.3 % (1.0-10.0); NEUTROPHILS % (AUTO) 64.6 % (45.0-75.0); PLATELET COUNT 185 K/UL (150-450); RED BLOOD COUNT 4.01 M/UL (4.20-5.40); RED CELL DISTRIBUTION WIDTH 13.2 % (11.6-14.8); WHITE BLOOD COUNT 5.4 K/UL (4.8-10.8)
[2018-11-07] MEDS: metFORMIN 500mg tab ORAL SCH ×2 (08:17→17:37)
[2018-11-07] MEDS: Docusate 250mg cap ORAL SCH (08:17)
[2018-11-07] MEDS ORDERED: metFORMIN 500mg tab ORAL SCH (09:00)
[2018-11-07 09:20] LABS: ANION GAP 8 mmol/L (5-15); BLOOD UREA NITROGEN 15 mg/dL (7-18); CALCIUM 9.4 MG/DL (8.5-10.1); CARBON DIOXIDE 31 MMOL/L (21-32); CHLORIDE 105 MMOL/L (98-107); CREATININE 0.7 MG/DL (0.55-1.30); POTASSIUM 3.7 MMOL/L (3.5-5.1); SODIUM 144 MMOL/L (136-145)
[2018-11-07 10:07] LABS: % IRON SATURATION 22 % (15-50); IRON 37 ug/dL (50-175); TOTAL IRON BINDING CAPACITY 170 ug/dL (250-450)
[2018-11-07 12:00] VITALS: BP 100/69
--- NOTE | 2018-11-07 13:14 | Nephrology Progress Note ---
Assessment/Plan Assessment 1. Failure to thrive. 2. Prerenal azotemia. 3. Dehydration 4. hypokalemia 5. Diabetes. Plan plan continue ivf monitoring renal function avoid NSAID replace electrolyte as need it PEG placement Subjective Constitutional: Reports: no symptoms HEENT: Reports: no symptoms Genitourinary: Reports: no symptoms Neurologic/Psychiatric: Reports: no symptoms Subjective awake no acute events Objective Objective Last 24 Hour Vital Signs Date Time Temp Pulse Resp B/P (MAP) Pulse Ox O2 Delivery O2 Flow Rate FiO2 11/07/18 12:00 96.9 81 18 100/69 (79) 96 11/07/18 12:00 87 11/07/18 09:00 Room Air 11/07/18 08:00 70 11/07/18 08:00 97.3 60 18 127/57 (80) 99 11/07/18 04:00 43 11/07/18 04:00 97.4 65 16 144/75 (98) 99 11/07/18 00:00 66 11/07/18 00:00 97.5 67 18 121/82 (95) 100 11/06/18 21:00 Room Air 11/06/18 20:00 97.5 57 18 158/71 (100) 96 11/06/18 16:00 48 11/06/18 16:00 96.4 50 18 108/60 (76) 94 Intake and Output 11/06/18 11/07/18 19:00 07:00 Intake Total 810 ml 680 ml Output Total 300 ml 3 ml Balance 510 ml 677 ml Intake Oral 120 ml 120 ml IV Total 690 ml 560 ml Output Urine Total 300 ml 3 ml # Voids 1 Laboratory Tests 11/07/18 06:25: Ferritin 563H 11/07/18 06:26: White Blood Count 5.4, Red Blood Count 4.01L, Hemoglobin 11.9L, Hematocrit 36.3L , Mean Corpuscular Volume 91, Mean Corpuscular Hemoglobin 29.7, Mean Corpuscular Hemoglobin Concent 32.8, Red Cell Distribution Width 13.2, Platelet Count 185, Mean Platelet Volume 6.7, Neutrophils (%) (Auto) 64.6, Lymphocytes (% ) (Auto) 18.0L, Monocytes (%) (Auto) 14.3H, Eosinophils (%) (Auto) 2.6, Basophils (%) (Auto) 0.6, Sodium Level 144, Potassium Level 3.7, Chloride Level 105, Carbon Dioxide Level 31, Anion Gap 8, Blood Urea Nitrogen 15, Creatinine 0.7, Estimat Glomerular Filtration Rate , Glucose Level 90, Hemoglobin A1c 6.3H , Calcium Level 9.4, Iron Level 37L, Total Iron Binding Capacity 170L, Percent Iron Saturation 22, Unsaturated Iron Binding 133, Vitamin B12 Level 862, Folate 13.0 11/07/18 11:30: Carcinoembryonic Antigen [Pending] Height (Feet): 5 Height (Inches): 4.00 Weight (Pounds): 110 Objective HEAD AND NECK: Bitemporal wasting. Extraocular movements intact. Pupils are reactive to light and accommodation. Mucous membranes are dry. LUNGS: Clear to auscultation. CARDIAC: Regular rate and rhythm. S1 and S2 normal. No murmurs or rubs. ABDOMEN: Soft, nontender, nondistended. EXTREMITIES: No edema. No clubbing. No cyanosis. Maday Moreira MD Nov 07, 2018 13:14
--- NOTE | 2018-11-07 13:25 | Cardiac Electrophysiology PN ---
Assessment/Plan Assessment/Plan 1. Weakness. The patient was ruled out for myocardial infarction. EKGs though read as bradycardic. No significant ST-T wave abnormality. The patient refused echocardiogram. The patient is getting IV hydration. 2. Hypotension, resolved with IV fluids, likely dehydrated. 3. Failure to thrive. Further evaluation by Dr. Jeff. PEG placement is pending tomorrow. THERON RN Subjective Subjective Confused in NAD. In SR. Objective Last 24 Hour Vital Signs Date Time Temp Pulse Resp B/P (MAP) Pulse Ox O2 Delivery O2 Flow Rate FiO2 11/07/18 12:00 96.9 81 18 100/69 (79) 96 11/07/18 12:00 87 11/07/18 09:00 Room Air 11/07/18 08:00 70 11/07/18 08:00 97.3 60 18 127/57 (80) 99 11/07/18 04:00 43 11/07/18 04:00 97.4 65 16 144/75 (98) 99 11/07/18 00:00 66 11/07/18 00:00 97.5 67 18 121/82 (95) 100 11/06/18 21:00 Room Air 11/06/18 20:00 97.5 57 18 158/71 (100) 96 11/06/18 16:00 48 11/06/18 16:00 96.4 50 18 108/60 (76) 94 Intake and Output 11/06/18 11/07/18 19:00 07:00 Intake Total 810 ml 680 ml Output Total 300 ml 3 ml Balance 510 ml 677 ml Intake Oral 120 ml 120 ml IV Total 690 ml 560 ml Output Urine Total 300 ml 3 ml # Voids 1 Laboratory Tests Test 11/07/18 06:25 11/07/18 06:26 11/07/18 11:30 Ferritin 563 NG/ML (8-388) H White Blood Count 5.4 K/UL (4.8-10.8) Red Blood Count 4.01 M/UL (4.20-5.40) L Hemoglobin 11.9 G/DL (12.0-16.0) L Hematocrit 36.3 % (37.0-47.0) L Mean Corpuscular Volume 91 FL (80-99) Mean Corpuscular Hemoglobin 29.7 PG (27.0-31.0) Mean Corpuscular Hemoglobin Concent 32.8 G/DL (32.0-36.0) Red Cell Distribution Width 13.2 % (11.6-14.8) Platelet Count 185 K/UL (150-450) Mean Platelet Volume 6.7 FL (6.5-10.1) Neutrophils (%) (Auto) 64.6 % (45.0-75.0) Lymphocytes (%) (Auto) 18.0 % (20.0-45.0) L Monocytes (%) (Auto) 14.3 % (1.0-10.0) H Eosinophils (%) (Auto) 2.6 % (0.0-3.0) Basophils (%) (Auto) 0.6 % (0.0-2.0) Sodium Level 144 MMOL/L (136-145) Potassium Level 3.7 MMOL/L (3.5-5.1) Chloride Level 105 MMOL/L (98-107) Carbon Dioxide Level 31 MMOL/L (21-32) Anion Gap 8 mmol/L (5-15) Blood Urea Nitrogen 15 mg/dL (7-18) Creatinine 0.7 MG/DL (0.55-1.30) Estimat Glomerular Filtration Rate mL/min (>60) Glucose Level 90 MG/DL (74-106) Hemoglobin A1c 6.3 % (4.3-6.0) H Calcium Level 9.4 MG/DL (8.5-10.1) Iron Level 37 ug/dL (50-175) L Total Iron Binding Capacity 170 ug/dL (250-450) L Percent Iron Saturation 22 % (15-50) Unsaturated Iron Binding 133 ug/dL (112-346) Vitamin B12 Level 862 PG/ML (193-986) Folate 13.0 NG/ML (8.6-58.9) Carcinoembryonic Antigen Pending Microbiology Date/Time Source Procedure Growth Status 11/05/18 16:00 Blood Blood Culture - Preliminary NO GROWTH AFTER 24 HOURS Resulted 11/05/18 15:50 Blood Blood Culture - Preliminary NO GROWTH AFTER 24 HOURS Resulted 11/05/18 16:00 Nasal Nares MRSA Culture - Final NO METHICILLIN RESISTANT STAPH AUREUS... Complete 11/05/18 16:00 Rectum VRE Culture - Final NO VANCOMYCIN RESISTANT ENTEROCOCCUS ... Complete 11/05/18 16:00 Rectum - Final NO CARBAPENEM-RESISTANT ENTEROBACTERI... Complete Objective HEAD AND NECK: No JVD. LUNGS: Coarse rhonchi. CARDIOVASCULAR: Regular S1 and S2 with no gallop or murmur. ABDOMEN: Soft. EXTREMITIES: No pitting edema. Michael Main MD Nov 07, 2018 13:25
--- NOTE | 2018-11-07 13:47 | NUR ---
RD ASSESSMENT & RECOMMENDATIONS SEE CARE ACTIVITY FOR COMPLETE ASSESSMENT DAILY ESTIMATED NEEDS: Needs based on Wasting, DM, wound 50kg 30-35 kcals/kg 5847-6869 total kcals 1.25-1.5 g protein/kg 63-75 g total protein 25-30 mL/kg 0019-2187 total fluid mLs NUTRITION DIAGNOSIS: Inadequate oral intake r/t dysphagia and FTT as evidenced by pt w/ generalized moderate to severe wasting, adm on puree texture diet w/ NTL, w/ pending PEG placement. CURRENT DIET: CCHO LOW puree/ NTL + Boost PO DIET RECOMMENDATIONS: Liberalized regular diet / texture per SHOE CEMENTER ENTERAL NUTRITION RECOMMENDATIONS: Glucerna 1.2 @55ml/hr x24 hrs to provide 1320ml, 1584 kcal, 79g pro, 1063ml free H2O - Rec to start Glucerna 1.2 @15ml/hr for 6 hrs - Advance 10ml/hr q4-6 hrs to goal - Flush per MD, HOB over 30 degrees ------ ADDITIONAL RECOMMENDATIONS: 1) Obtain accurate CBW EMR wt: 110# Bed wt: 120# 2) Monitor lytes closely w/ TF 3) Cancel oral Boost order w/ TF's 4) SHOE CEMENTER eval for appropriate texture 5) Sacral wound: add MARK BID via PEG + Vit C 250mg daily
--- NOTE | 2018-11-07 14:06 | Consultation ---
History of Present Illness General Chief Complaint: Generalized Weakness Present Illness Allergies: Coded Allergies: No Known Allergies (Unverified , 11/05/18) Medication History Scheduled Atorvastatin Calcium* (Lipitor*), 10 MG ORAL BEDTIME, (Reported) Divalproex Sodium* (Depakote*), 500 MG PO Q12HR, (Reported) Docusate Sodium* (Colace*), 250 MG ORAL DAILY, (Reported) Hydrochlorothiazide* (Hydrochlorothiazide*), 25 MG ORAL DAILY, (Reported) Lisinopril* (Lisinopril*), 20 MG ORAL DAILY, (Reported) Metformin Hcl* (Metformin Hcl*), 1,000 MG ORAL BID, (Reported) Risperidone* (Risperdal*), 2 MG ORAL BID, (Reported) Patient History Healthcare decision maker N Resuscitation status Full Code Advanced Directive on File Physical Exam Last 24 Hour Vital Signs Date Time Temp Pulse Resp B/P (MAP) Pulse Ox O2 Delivery O2 Flow Rate FiO2 11/07/18 12:00 96.9 81 18 100/69 (79) 96 11/07/18 12:00 87 11/07/18 09:00 Room Air 11/07/18 08:00 70 11/07/18 08:00 97.3 60 18 127/57 (80) 99 11/07/18 04:00 43 11/07/18 04:00 97.4 65 16 144/75 (98) 99 11/07/18 00:00 66 11/07/18 00:00 97.5 67 18 121/82 (95) 100 11/06/18 21:00 Room Air 11/06/18 20:00 97.5 57 18 158/71 (100) 96 11/06/18 16:00 48 11/06/18 16:00 96.4 50 18 108/60 (76) 94 Intake and Output 11/06/18 11/07/18 19:00 07:00 Intake Total 810 ml 680 ml Output Total 300 ml 3 ml Balance 510 ml 677 ml Intake Oral 120 ml 120 ml IV Total 690 ml 560 ml Output Urine Total 300 ml 3 ml # Voids 1 Laboratory Tests Test 11/07/18 06:25 11/07/18 06:26 11/07/18 11:30 Ferritin 563 NG/ML (8-388) H White Blood Count 5.4 K/UL (4.8-10.8) Red Blood Count 4.01 M/UL (4.20-5.40) L Hemoglobin 11.9 G/DL (12.0-16.0) L Hematocrit 36.3 % (37.0-47.0) L Mean Corpuscular Volume 91 FL (80-99) Mean Corpuscular Hemoglobin 29.7 PG (27.0-31.0) Mean Corpuscular Hemoglobin Concent 32.8 G/DL (32.0-36.0) Red Cell Distribution Width 13.2 % (11.6-14.8) Platelet Count 185 K/UL (150-450) Mean Platelet Volume 6.7 FL (6.5-10.1) Neutrophils (%) (Auto) 64.6 % (45.0-75.0) Lymphocytes (%) (Auto) 18.0 % (20.0-45.0) L Monocytes (%) (Auto) 14.3 % (1.0-10.0) H Eosinophils (%) (Auto) 2.6 % (0.0-3.0) Basophils (%) (Auto) 0.6 % (0.0-2.0) Sodium Level 144 MMOL/L (136-145) Potassium Level 3.7 MMOL/L (3.5-5.1) Chloride Level 105 MMOL/L (98-107) Carbon Dioxide Level 31 MMOL/L (21-32) Anion Gap 8 mmol/L (5-15) Blood Urea Nitrogen 15 mg/dL (7-18) Creatinine 0.7 MG/DL (0.55-1.30) Estimat Glomerular Filtration Rate mL/min (>60) Glucose Level 90 MG/DL (74-106) Hemoglobin A1c 6.3 % (4.3-6.0) H Calcium Level 9.4 MG/DL (8.5-10.1) Iron Level 37 ug/dL (50-175) L Total Iron Binding Capacity 170 ug/dL (250-450) L Percent Iron Saturation 22 % (15-50) Unsaturated Iron Binding 133 ug/dL (112-346) Vitamin B12 Level 862 PG/ML (193-986) Folate 13.0 NG/ML (8.6-58.9) Carcinoembryonic Antigen Pending Height (Feet): 5 Height (Inches): 4.00 Weight (Pounds): 110 Medications Current Medications Medications (Trade) Dose Ordered Sig/Sheri Route PRN Reason Start Time Stop Time Status Last Admin Dose Admin Acetaminophen (Tylenol) 650 mg Q4H PRN ORAL Mild Pain/Temp > 100 11/07/18 04:15 12/05/18 20:14 Dextrose (Dextrose 50%) 25 ml Q30M PRN IV Hypoglycemia 11/07/18 01:00 12/05/18 20:29 Dextrose (Dextrose 50%) 50 ml Q30M PRN IV Hypoglycemia 11/07/18 01:00 12/05/18 20:29 Dextrose/Sodium Chloride 1,000 ml @ 70 mls/hr [id number] IV 11/07/18 00:45 12/06/18 11:29 11/07/18 01:28 Docusate Sodium (Colace) 250 mg DAILY ORAL 11/07/18 09:00 12/06/18 08:59 11/07/18 08:17 Insulin Aspart (NovoLOG) BEFORE MEALS AND HS SUBQ 11/07/18 06:30 12/05/18 20:59 11/07/18 11:39 Metformin HCl (Glucophage) 500 mg BID ORAL 11/07/18 09:00 12/07/18 08:59 11/07/18 08:17 Assessment/Plan Assessment/Plan: Hematology Consultation REQ MD: Marvin Cole RFC: FTT DOS 11/07/18 RFA: Weakness HPI Was called to evaluate patient for FTT, she is a 78-year-old female history of dementia presents with failure to thrive, refusing to eat unknown start time, no aggravating or alleviating factors, severity is severe, history is limited secondary to patient's condition, spoke with Dr. Cole who wants patient evaluated Allergies: No Known Allergies (Unverified , 11/05/18) Patient History Limited by: medical condition - Dementia Past Medical History: see triage record Now: No Reviewed Nursing Documentation: PMH: Agreed; PSxH: Agreed Past Medical History: No History, Except For Hx Hypertension: Yes Hx COPD: Yes Hx Diabetes: Yes History Of Psychiatric Problem: Yes - PSYCHOSIS Review of Systems limited - Dementia Physical Exam: Vitals: reviewed General Appearance: NAD HEENT: normocephalic, atraumatic Neck: non-tender, normal alignment Chest: normal breath sounds b.l Cv: normal peripheral pulses, normal rate Abd: normal bowel sounds, soft, nontender Extremities: normal range of motion Labs: reviewed Imaging: noted Assessment and Recs: # Failure to thrive (FTT) - decreased bmi and low protein, could be related to decreased protein/food intake --> have ordered for cea level --> will also obtain q3d caloric counts --> may consider mirtazapine as appetite stimulant --> GI consult on a prn basis, as needed for endosc # Anemia of chronic disease (or of iron deficiency) due to underlying chronic medical issues, multifactorial --> Anemia workup has been ordered, rule out gi bleed --> No evidence of hemolysis is noted, peripheral smear has been reviewed. --> Hgb goal >7. Transfuse prn. --> Epogen or iron at this time is not particularly indicated --> Medications have been reviewed --> low threshold for gi evaluation in case has occult + # General weakness --> as per renal recs, on ivf # AMS does not appear to have uti # Hypotension -> was given ivf The timing of this note does not necessarily reflect the time of the patient was seen. GREATLY APPRECIATE CONSULTATION. Frank Rogers MD Nov 07, 2018 14:06
[2018-11-07 16:00] VITALS: BP 125/70
--- NOTE | 2018-11-07 19:45 | NUR ---
HAND-OFF: Report given to Promise Roldan. Patient stable at hand off. Plan of care endorsed.
--- NOTE | 2018-11-07 19:45 | NUR ---
NURSE NOTES: RECEIVED PATIENT RESTING IN BED, CONFUSED. FALL, ASPIRATION AND SEIZURE PRECAUTIONS IN PLACE: CALL LIGHT WITHIN REACH, BED IN LOW POSITION AND BED ALARM ON, HOB ELEVATED AND SIDE RAILS PADDED. WILL CONTINUE WITH PLAN OF CARE.
[2018-11-07 20:00] VITALS: BP 120/68
--- NOTE | 2018-11-07 20:55 | General Progress Note ---
Assessment/Plan Problem List: (1) Dehydration ICD Codes: E86.0 - Dehydration SNOMED: 66796889 (2) General weakness ICD Codes: R53.1 - Weakness SNOMED: 94923294 (3) Failure to thrive in adult ICD Codes: R62.7 - Adult failure to thrive SNOMED: 667791077 (4) Bradycardia ICD Codes: R00.1 - Bradycardia, unspecified SNOMED: 07711249 Status: progressing Assessment/Plan: to tele for bradycardia dehydration improving FTT dementia reviewed chart and labs Subjective ROS Limited/Unobtainable: Yes Allergies: Coded Allergies: No Known Allergies (Unverified , 11/05/18) Objective Last 24 Hour Vital Signs Date Time Temp Pulse Resp B/P (MAP) Pulse Ox O2 Delivery O2 Flow Rate FiO2 11/07/18 16:00 63 11/07/18 16:00 97.1 62 18 125/70 (88) 97 11/07/18 12:00 96.9 81 18 100/69 (79) 96 11/07/18 12:00 87 11/07/18 09:00 Room Air 11/07/18 08:00 70 11/07/18 08:00 97.3 60 18 127/57 (80) 99 11/07/18 04:00 43 11/07/18 04:00 97.4 65 16 144/75 (98) 99 11/07/18 00:00 66 11/07/18 00:00 97.5 67 18 121/82 (95) 100 11/06/18 21:00 Room Air Intake and Output 11/06/18 11/07/18 19:00 07:00 Intake Total 810 ml 680 ml Output Total 300 ml 3 ml Balance 510 ml 677 ml Intake Oral 120 ml 120 ml IV Total 690 ml 560 ml Output Urine Total 300 ml 3 ml # Voids 1 Laboratory Tests 11/07/18 06:25: Ferritin 563H 11/07/18 06:26: White Blood Count 5.4, Red Blood Count 4.01L, Hemoglobin 11.9L, Hematocrit 36.3L , Mean Corpuscular Volume 91, Mean Corpuscular Hemoglobin 29.7, Mean Corpuscular Hemoglobin Concent 32.8, Red Cell Distribution Width 13.2, Platelet Count 185, Mean Platelet Volume 6.7, Neutrophils (%) (Auto) 64.6, Lymphocytes (% ) (Auto) 18.0L, Monocytes (%) (Auto) 14.3H, Eosinophils (%) (Auto) 2.6, Basophils (%) (Auto) 0.6, Sodium Level 144, Potassium Level 3.7, Chloride Level 105, Carbon Dioxide Level 31, Anion Gap 8, Blood Urea Nitrogen 15, Creatinine 0.7, Estimat Glomerular Filtration Rate , Glucose Level 90, Hemoglobin A1c 6.3H , Calcium Level 9.4, Iron Level 37L, Total Iron Binding Capacity 170L, Percent Iron Saturation 22, Unsaturated Iron Binding 133, Vitamin B12 Level 862, Folate 13.0 11/07/18 11:30: Carcinoembryonic Antigen [Pending] Height (Feet): 5 Height (Inches): 4.00 Weight (Pounds): 110 General Appearance: confused Cardiovascular: normal peripheral pulses Respiratory/Chest: lungs clear Abdomen: soft Marvin Cole MD Nov 07, 2018 20:55
--- NOTE | 2018-11-07 22:14 | NUR ---
NURSE NOTES: INCONTINENCE CARE GIVEN, CALAZIME CREAM APPLIED TO PERINEAL AREA, LINEN CHANGED. PATIENT TURNED AND REPOSITIONED.
[2018-11-08] VITALS (10 sets, daily range): BP systolic 103–143; BP diastolic 51–78
[2018-11-08] MEDS: D5 1/2NS 1,000 ML IV SCH ×2 (05:12→20:11)
[2018-11-08] MEDS: NovoLOG Insulin Flexpen SUBQ SCH ×4 (06:25→21:55)
--- NOTE | 2018-11-08 07:09 | NUR ---
HAND-OFF: Report given to Nelly OLIVEIRA RN. PATIENT ASLEEP, NO SIGNS OF DISTRESS NOTED.
--- NOTE | 2018-11-08 07:29 | NUR ---
Pt resting in bed. Pt on Cardia monitor, no signs of cardiac or respiratory distress. Iv running on L hand D5 1/2 NS, site intact and patent. Pt is NPO and will have Peg placement today. Pt on Purewick. Bed is in lowest position and locked. Call light is with in reach. Will continue plan of care. Addendum: 11/08/18 at 0738 by Mary Ball RN NURSE NOTES: Pt resting in bed. Pt on Cardia monitor, no signs of cardiac or respiratory distress. Iv running on L hand D5 1/2 NS, site intact and patent. Pt is NPO and will have Peg placement today. Pt on Purewick. Bed is in lowest position and locked. Call light is with in reach. Will continue plan of care. Pt is on seizure precautions rails are padded.
[2018-11-08 07:42] LABS: BASOPHILS % (AUTO) 0.6 % (0.0-2.0); EOSINOPHILS % (AUTO) 2.2 % (0.0-3.0); HEMATOCRIT 34.4 % (37.0-47.0); HEMOGLOBIN 11.3 G/DL (12.0-16.0); LYMPHOCYTES % (AUTO) 26.1 % (20.0-45.0); MEAN CORPUSCULAR VOLUME 91 FL (80-99); MONOCYTES % (AUTO) 12.1 % (1.0-10.0); NEUTROPHILS % (AUTO) 59.1 % (45.0-75.0); PLATELET COUNT 184 K/UL (150-450); RED BLOOD COUNT 3.77 M/UL (4.20-5.40); RED CELL DISTRIBUTION WIDTH 12.9 % (11.6-14.8); WHITE BLOOD COUNT 3.8 K/UL (4.8-10.8)
[2018-11-08 07:49] LABS: INR 0.9 (0.9-1.1)
[2018-11-08 08:12] LABS: ANION GAP 3 mmol/L (5-15); BLOOD UREA NITROGEN 8 mg/dL (7-18); CALCIUM 9.2 MG/DL (8.5-10.1); CARBON DIOXIDE 33 MMOL/L (21-32); CHLORIDE 107 MMOL/L (98-107); CREATININE 0.7 MG/DL (0.55-1.30); POTASSIUM 3.5 MMOL/L (3.5-5.1); SODIUM 143 MMOL/L (136-145)
--- NOTE | 2018-11-08 08:45 | NUR ---
NURSE NOTES: Per Partha/Rn hold 9am meds for procedure.
[2018-11-08] MEDS: Docusate 250mg cap ORAL SCH (09:00)
[2018-11-08] MEDS: metFORMIN 500mg tab ORAL SCH ×2 (09:00→18:00)
--- NOTE | 2018-11-08 09:03 | Nephrology Progress Note ---
Assessment/Plan Assessment 1. Failure to thrive. 2. Prerenal azotemia. 3. Dehydration 4. hypokalemia 5. Diabetes. Plan plan continue ivf monitoring renal function avoid NSAID replace electrolyte as need it PEG placement Subjective ROS Limited/Unobtainable: Yes Constitutional: Reports: no symptoms HEENT: Reports: no symptoms Genitourinary: Reports: no symptoms Neurologic/Psychiatric: Reports: no symptoms Subjective awake not fallowing command no acute events Objective Objective Last 24 Hour Vital Signs Date Time Temp Pulse Resp B/P (MAP) Pulse Ox O2 Delivery O2 Flow Rate FiO2 11/08/18 04:00 55 11/08/18 04:00 97.6 69 18 125/76 (92) 93 11/08/18 00:00 97.1 74 18 123/78 (93) 93 11/08/18 00:00 56 11/07/18 21:00 Room Air 11/07/18 20:00 62 11/07/18 20:00 97.2 66 16 120/68 (85) 93 11/07/18 16:00 63 11/07/18 16:00 97.1 62 18 125/70 (88) 97 11/07/18 12:00 96.9 81 18 100/69 (79) 96 11/07/18 12:00 87 Intake and Output 11/07/18 11/08/18 19:00 07:00 Intake Total 270 ml 880 ml Output Total 450 ml 1 ml Balance -180 ml 879 ml Intake Oral 270 ml 50 ml IV Total 830 ml Output Urine Total 450 ml 1 ml # Voids 1 4 Laboratory Tests 11/07/18 11:30: Carcinoembryonic Antigen [Pending] 11/08/18 06:18: White Blood Count 3.8L, Red Blood Count 3.77L, Hemoglobin 11.3L, Hematocrit 34.4L, Mean Corpuscular Volume 91, Mean Corpuscular Hemoglobin 29.9, Mean Corpuscular Hemoglobin Concent 32.7, Red Cell Distribution Width 12.9, Platelet Count 184, Mean Platelet Volume 6.8, Neutrophils (%) (Auto) 59.1, Lymphocytes (% ) (Auto) 26.1, Monocytes (%) (Auto) 12.1H, Eosinophils (%) (Auto) 2.2, Basophils (%) (Auto) 0.6, Prothrombin Time 10.0, Prothromb Time International Ratio 0.9, Sodium Level 143, Potassium Level 3.5, Chloride Level 107, Carbon Dioxide Level 33H, Anion Gap 3L, Blood Urea Nitrogen 8, Creatinine 0.7, Estimat Glomerular Filtration Rate , Glucose Level 74, Calcium Level 9.2 Height (Feet): 5 Height (Inches): 4.00 Weight (Pounds): 109 Objective HEAD AND NECK: Bitemporal wasting. Extraocular movements intact. Pupils are reactive to light and accommodation. Mucous membranes are dry. LUNGS: Clear to auscultation. CARDIAC: Regular rate and rhythm. S1 and S2 normal. No murmurs or rubs. ABDOMEN: Soft, nontender, nondistended. EXTREMITIES: No edema. No clubbing. No cyanosis. Maday Moreira MD Nov 08, 2018 09:03
--- NOTE | 2018-11-08 10:14 | Pre-Procedure Note/Attestation ---
Pre-Procedure Note/Attestation Complete Prior to Procedure Planned Procedure: not applicable Procedure Narrative: egd/peg Indications for Procedure Pre-Operative Diagnosis: FTT, dysphagia Attestation I attest that I discussed the nature of the procedure; its benefits; risks and complications; and alternatives (and the risks and benefits of such alternatives ), prior to the procedure, with the patient (or the patient's legal motor vehicle field representative). I attest that, if there was a reasonable possibility of needing a blood transfusion, the patient (or the patient's legal motor vehicle field representative) was given the [facility] standardized written summary, pursuant to the Karl Emma Blood Safety Act ([place] Health and Safety Code # 1645, as amended). I attest that I re-evaluated the patient just prior to the surgery and that there has been no change in the patient's H&P, except as documented below: Cihno Jeff MD Nov 08, 2018 10:14
--- NOTE | 2018-11-08 10:15 | General Progress Note ---
Assessment/Plan Problem List: (1) Failure to thrive in adult ICD Codes: R62.7 - Adult failure to thrive SNOMED: 569200557 (2) Bradycardia ICD Codes: R00.1 - Bradycardia, unspecified SNOMED: 66728014 (3) General weakness ICD Codes: R53.1 - Weakness SNOMED: 58728184 (4) Dehydration ICD Codes: E86.0 - Dehydration SNOMED: 34389509 Status: progressing Assessment/Plan: pending PEG for today recent labs and notes reviewed Subjective ROS Limited/Unobtainable: No Allergies: Coded Allergies: No Known Allergies (Unverified , 11/05/18) Objective Last 24 Hour Vital Signs Date Time Temp Pulse Resp B/P (MAP) Pulse Ox O2 Delivery O2 Flow Rate FiO2 11/08/18 04:00 55 11/08/18 04:00 97.6 69 18 125/76 (92) 93 11/08/18 00:00 97.1 74 18 123/78 (93) 93 11/08/18 00:00 56 11/07/18 21:00 Room Air 11/07/18 20:00 62 11/07/18 20:00 97.2 66 16 120/68 (85) 93 11/07/18 16:00 63 11/07/18 16:00 97.1 62 18 125/70 (88) 97 11/07/18 12:00 96.9 81 18 100/69 (79) 96 11/07/18 12:00 87 Intake and Output 11/07/18 11/08/18 18:59 06:59 Intake Total 270 ml 810 ml Output Total 450 ml 1 ml Balance -180 ml 809 ml Intake Oral 270 ml 50 ml IV Total 760 ml Output Urine Total 450 ml 1 ml # Voids 1 4 Laboratory Tests 11/07/18 11:30: Carcinoembryonic Antigen [Pending] 11/08/18 06:18: White Blood Count 3.8L, Red Blood Count 3.77L, Hemoglobin 11.3L, Hematocrit 34.4L, Mean Corpuscular Volume 91, Mean Corpuscular Hemoglobin 29.9, Mean Corpuscular Hemoglobin Concent 32.7, Red Cell Distribution Width 12.9, Platelet Count 184, Mean Platelet Volume 6.8, Neutrophils (%) (Auto) 59.1, Lymphocytes (% ) (Auto) 26.1, Monocytes (%) (Auto) 12.1H, Eosinophils (%) (Auto) 2.2, Basophils (%) (Auto) 0.6, Prothrombin Time 10.0, Prothromb Time International Ratio 0.9, Sodium Level 143, Potassium Level 3.5, Chloride Level 107, Carbon Dioxide Level 33H, Anion Gap 3L, Blood Urea Nitrogen 8, Creatinine 0.7, Estimat Glomerular Filtration Rate , Glucose Level 74, Calcium Level 9.2 Height (Feet): 5 Height (Inches): 4.00 Weight (Pounds): 109 General Appearance: alert EENT: normal ENT inspection Neck: supple Cardiovascular: normal rate Respiratory/Chest: lungs clear Abdomen: normal bowel sounds, non tender, soft Extremities: non-tender Chino Jeff MD Nov 08, 2018 10:15
--- NOTE | 2018-11-08 10:37 | NUR ---
SWALLOW/SPEECH THERAPY NOTE: REFERRED BY DR. MARTIN (DR KING PRIMARY) FOR SWALLOW EVALUATION, SEE FULL REPORT TO FOLLOW. DYSPHAGIA RISK FACTORS FOR THIS 78 Y.O.F.: ACUTE WEAKNESS, FTT REFUSES TO EAT, DEHYDRATION, LUNGS CLEAR ON RECENT XRAY H/O PROTEIN-CALORIE MALNUTRITION, OBS DEMENTIA WITH BEHAVIORAL DISTURBANCES, SEIZURES, PSYCH ISSUES (PARANOID SCHIZOPHRENIA, BIPOLAR, ANXIETY ON RISPERDAL), COPD, NIDDM, HTN, HYPERLIPIDEMIA. POLST STATES FULL TX AND FULL CODE BUT ARTIFICIAL NUTRITION SECTION NOT COMPLETED. AT SNF ON A [facility] SOFT AND BITE SIZE DIET CRUSH MEDS AND ONE CAN ENSURE BETWEEN MEALS IF POOR INTAKE. CURRENTLY ON A [facility] PUREED AND NECTAR THICK LIQUID DIET WITH 25/75% INTAKE. GI DR SALEH ALSO ON CASE. PER MAULIK HORNE REFUSING ORAL CARE AND IS AGITATED. PER CHIKIS BRADY PATIENT AGITATED AND NEEDS TO BE CALM PRIOR TO PEG PLACEMENT TODAY. INITIAL IMPRESSIONS: NOT ALERT FOR PO TRIALS HIGH RISK FOR OROPHARYNGEAL DYSPHAGIA AND SILENT ASPIRATION RISK (OBS DEMENTIA). POOR INTAKE AND TENDS TO REFUSE PRIOR TO ADMIT AND NOW REFUSING ORAL CARE PER DATACAP DEVELOPER RECOMMENDATIONS: GIVEN THAT PEG PLACEMENT IS TODAY, WILL HOLD ON PO TRIALS UNTIL TOMORROW TO SEE IF PT IS WILLING TO TAKE TSP NECTAR THICK LIQUID PRIOR TO MODIFIED BARIUM SWALLOW STUDY (MBSS) DR SALEH WANTS PT TO RECEIVE ORAL GRATIFICATION IF POSSIBLE AFTER PEG PLACEMENT. CONTINUE WITH ORAL CARE ONLY IF THE PATIENT IS RECEPTIVE. SKILLED DYSPHAGIA MANAGEMENT AND TX EDUCATED/TRAINED STAFF (CHIKIS BRADY AND MAULIK HORNE) IN POSTED ORAL CARE AND ASP WITH PEG. COGNITIVE-COMMUNICATIVE EVAL AND TX MOSTLY FOR COMMUNICATION TIPS (BASELINE PER MD PATIENT IS NONVERBAL). D/W STAFF AND WILL TRY TO CONTACT DAUGHTER OR FAMILY Addendum: 11/08/18 at 1109 by INO ALONSO [employer]DER MET WITH PATIENT'S DAUGHTER AND DISCUSSED ORAL CARE AND MBSS TOMORROW. PER HER DTR PT WOULD REFUSE ON AND OFF PO INTAKE AT SNF. SHE WAS TAKING ENSURE THERE BUT SHE DOES NOT KNOW IF SHE COUGHED ON IT. HER DTR SAID THE PATIENT LIKELY DID NOT HAVE ANY PRIOR MBSS.
[2018-11-08] MEDS ORDERED: Ketorolac 30mg Inj IV PRN ×2 (11:30)
[2018-11-08] MEDS ORDERED: DiphenhydrAMINE 50mg/ml Inj IVP PRN (11:30)
[2018-11-08] MEDS ORDERED: oxyCODONE HCL/Acetaminophen 5/325mg ORAL PRN (11:30)
[2018-11-08] MEDS ORDERED: LORazepam Inj 2mg/ml 1ml IV PRN (11:30)
[2018-11-08] MEDS ORDERED: HYDROcodone/Acetamin 7.5/325 tab ORAL PRN (11:30)
[2018-11-08] MEDS ORDERED: LR 1000ml 1,000 ML IVLG SCH (11:30)
[2018-11-08] MEDS ORDERED: Midazolam 2mg/2ml Inj IVP PRN (11:30)
[2018-11-08] MEDS ORDERED: Metoclopramide 10mg/2ml Inj IVP PRN (11:30)
[2018-11-08] MEDS ORDERED: Labetalol 5mg/ml 20ml vial IV PRN (11:30)
[2018-11-08] MEDS ORDERED: Atropine Sulfate 0.4mg/ml inj IVP PRN (11:30)
[2018-11-08] MEDS ORDERED: Hydromorphone 0.5mg/0.5ml inj IVP PRN (11:30)
[2018-11-08] MEDS ORDERED: Meperidine 50mg/ml Inj(FOR RIGORS ONLY) IVP PRN (11:30)
[2018-11-08] MEDS ORDERED: fentaNYL 100 mcg/2 mL IV PRN (11:30)
[2018-11-08] MEDS ORDERED: HYDROcodone/Acetamin 5/325 tab ORAL PRN (11:30)
--- NOTE | 2018-11-08 11:34 | Anethesia Preoperative Eval ---
Anesthesia Pre-op PMH/ROS General Date of Evaluation: Nov 08, 2018 Time of Evaluation: 11:23 Anesthesiologist: Dwain ASA Score: ASA 4 Mallampati Score Class I : Soft palate, uvula, fauces, pillars visible Class II: Soft palate, uvula, fauces visible Class III: Soft palate, base of uvula visible Class IV: Only hard plate visible Mallampati Classification: Class II Surgeon: Randee Diagnosis: Failure to Thrive Surgical Procedure: PEG Anesthesia History: none Family History: no anesthesia problems Allergies: Coded Allergies: No Known Allergies (Unverified , 11/05/18) Medications: see eMAR Patient NPO?: Yes NPO Date: Nov 07, 2018 NPO Time: 0000 Past Medical History Cardiovascular: Reports: HTN Pulmonary: Reports: COPD Neurologic/Psychiatric: Reports: dementia Endocrine: Reports: DM Anesthesia Pre-op Phys. Exam Physician Exam Last Vital Signs Date Time Temp Pulse Resp B/P (MAP) Pulse Ox O2 Delivery O2 Flow Rate FiO2 11/08/18 08:00 53 11/08/18 08:00 98.3 15 139/56 (83) 98 11/07/18 21:00 Room Air Constitutional: NAD Neurologic: CN 2-12 intact Cardiovascular: RRR Respiratory: CTA Gastrointestinal: S/NT/ND Airway Exam Mallampati Score: Class II MO: limited ROM: limited Teeth: missing Anesthesia Pre-op A/P Labs Hematology Test 11/08/18 06:18 White Blood Count 3.8 K/UL (4.8-10.8) L Red Blood Count 3.77 M/UL (4.20-5.40) L Hemoglobin 11.3 G/DL (12.0-16.0) L Hematocrit 34.4 % (37.0-47.0) L Mean Corpuscular Volume 91 FL (80-99) Mean Corpuscular Hemoglobin 29.9 PG (27.0-31.0) Mean Corpuscular Hemoglobin Concent 32.7 G/DL (32.0-36.0) Red Cell Distribution Width 12.9 % (11.6-14.8) Platelet Count 184 K/UL (150-450) Mean Platelet Volume 6.8 FL (6.5-10.1) Neutrophils (%) (Auto) 59.1 % (45.0-75.0) Lymphocytes (%) (Auto) 26.1 % (20.0-45.0) Monocytes (%) (Auto) 12.1 % (1.0-10.0) H Eosinophils (%) (Auto) 2.2 % (0.0-3.0) Basophils (%) (Auto) 0.6 % (0.0-2.0) Coagulation Test 11/08/18 06:18 Prothrombin Time 10.0 SEC (9.30-11.50) Prothromb Time International Ratio 0.9 (0.9-1.1) Chemistry Test 11/08/18 06:18 Sodium Level 143 MMOL/L (136-145) Potassium Level 3.5 MMOL/L (3.5-5.1) Chloride Level 107 MMOL/L (98-107) Carbon Dioxide Level 33 MMOL/L (21-32) H Anion Gap 3 mmol/L (5-15) L Blood Urea Nitrogen 8 mg/dL (7-18) Creatinine 0.7 MG/DL (0.55-1.30) Estimat Glomerular Filtration Rate mL/min (>60) Glucose Level 74 MG/DL (74-106) Calcium Level 9.2 MG/DL (8.5-10.1) Risk Assessment & Plan Assessment: ASA 4 Plan: TIVA Status Change Before Surgery: No Smith Prakash MD Nov 08, 2018 11:34
--- NOTE | 2018-11-08 11:51 | NUR ---
NURSE NOTES: wound care for DTI in sacral area, applied barrier cream and optifoam to area as well as all bony areas in her body(shoulder, elbows, hips and heels) preventive care only. Explained to family members that optifoam is for preventing wounds and they understood reason.
--- NOTE | 2018-11-08 11:56 | Hematology/Onc Progress Note ---
Assessment/Plan Assessment/Plan Assessment and Recs: # Failure to thrive (FTT) - decreased bmi and low protein, could be related to decreased protein/food intake --> have ordered for cea level --> will also obtain q3d caloric counts --> may consider mirtazapine as appetite stimulant --> peg for today (11/08/18) # Anemia of chronic disease due to underlying chronic medical issues, multifactorial --> Anemia workup has been ordered, rule out gi bleed --> No evidence of hemolysis is noted, peripheral smear has been reviewed. --> Hgb goal >7. Transfuse prn. --> Epogen or iron at this time is not particularly indicated --> Medications have been reviewed --> low threshold for gi evaluation in case has occult + # Leukopenia - with decrease in wbc --> hepatitis and hiv ordered --> smear to be reviewed # General weakness --> as per renal recs, on ivf # AMS does not appear to have uti # Hypotension -> was given ivf --> better The timing of this note does not necessarily reflect the time of the patient was seen. GREATLY APPRECIATE CONSULTATION. Subjective Constitutional: Denies: no symptoms, chills, fever, malaise, weakness, other HEENT: Denies: no symptoms, eye pain, blurred vision, tearing, double vision, ear pain, ear discharge, nose pain, nose congestion, throat pain, throat swelling, mouth pain, mouth swelling, other Cardiovascular: Denies: no symptoms, chest pain, edema, irregular heart rate, lightheadedness, palpitations, syncope, other Respiratory: Denies: no symptoms, cough, shortness of breath, SOB with excertion, SOB at rest, sputum, wheezing, other Gastrointestinal/Abdominal: Denies: no symptoms, abdomen distended, abdominal pain, black stools, tarry stools, blood in stool, constipated, diarrhea, difficulty swallowing, nausea, poor appetite, poor fluid intake, rectal bleeding , vomiting, other Genitourinary: Denies: no symptoms, burning, discharge, frequency, flank pain, hematuria, incontinence, pain, urgency, other Neurologic/Psychiatric: Denies: no symptoms, anxiety, depressed, emotional problems, headache, numbness, paresthesia, pre-existing deficit, seizure, tingling, tremors, weakness, other Endocrine: Denies: no symptoms, excessive sweating, flushing, intolerance to cold, intolerance to heat, increased hunger, increased thirst, increased urine, unexplained weight gain, unexplained weight loss, other Hematologic/Lymphatic: Denies: no symptoms, anemia, easy bleeding, easy bruising, adenopathy, other Allergies: Coded Allergies: No Known Allergies (Unverified , 11/05/18) Subjective 11/08: no events, no bleeding noted, peg for today, lytes reviewed Objective Objective Current Medications Medications (Trade) Dose Ordered Sig/Sheri Route PRN Reason Start Time Stop Time Status Last Admin Dose Admin Acetaminophen (Tylenol) 650 mg Q4H PRN ORAL Mild Pain/Temp > 100 11/07/18 04:15 12/05/18 20:14 Acetaminophen/ Hydrocodone Bitart (Circle 5/325) 1 tab Q1H PRN ORAL Mild Pain (Pain Scale 1-3) 11/08/18 11:30 11/08/18 20:00 Acetaminophen/ Hydrocodone Bitart (Circle 7.5/325) 1 tab Q1H PRN ORAL Moderate Pain (Pain Scale 4-6) 11/08/18 11:30 11/08/18 20:00 Al Hydroxide/Mg Hydroxide (Mylanta) 15 ml Q1H PRN ORAL gi upset 11/08/18 11:30 11/08/18 20:00 Atropine Sulfate (Atropine 0.4mg/ ml) 0.5 mg Q5M PRN IVP HR<40 11/08/18 11:30 11/08/18 20:00 Dextrose (Dextrose 50%) 25 ml Q30M PRN IV Hypoglycemia 11/07/18 01:00 12/05/18 20:29 Dextrose (Dextrose 50%) 50 ml Q30M PRN IV Hypoglycemia 11/07/18 01:00 12/05/18 20:29 Dextrose/Sodium Chloride 1,000 ml @ 70 mls/hr [id number] IV 11/07/18 00:45 12/06/18 11:29 11/08/18 05:12 Diphenhydramine HCl (Benadryl) 25 mg Q15M PRN IVP Itching 11/08/18 11:30 11/08/18 20:00 Docusate Sodium (Colace) 250 mg DAILY ORAL 11/07/18 09:00 12/06/18 08:59 11/07/18 08:17 Fentanyl Citrate (Sublimaze 100 mcg/2 mL) 25 mcg Q10M PRN IV Moderate Pain (Pain Scale 4-6) 11/08/18 11:30 11/08/18 20:00 Hydralazine HCl (Apresoline) 5 mg Q30M PRN IV SBP>160 / DBP>90 11/08/18 11:30 11/08/18 20:00 Hydromorphone HCl (Dilaudid) 0.5 mg Q15M PRN IVP Severe Pain (Pain Scale 7-10) 11/08/18 11:30 11/08/18 20:00 Insulin Aspart (NovoLOG) BEFORE MEALS AND HS SUBQ 11/07/18 06:30 12/05/18 20:59 11/07/18 11:39 Ketorolac Tromethamine (Toradol 30mg) 15 mg Q1H PRN IV Moderate Breakthru Pain (5-7) 11/08/18 11:30 11/08/18 20:00 Ketorolac Tromethamine (Toradol 30mg) 30 mg Q1H PRN IV Severe Breakthru Pain (>7) 11/08/18 11:30 11/08/18 20:00 Labetalol HCl (Normodyne) 5 mg Q10M PRN IV SBP>160 / DBP>90 11/08/18 11:30 11/08/18 20:00 Lactated Ringer's 1,000 ml @ 10 mls/hr Q24H IVLG 11/08/18 11:30 11/08/18 13:29 Lorazepam (Ativan 2mg/ml 1ml) 1 mg Q15M PRN IV For Anxiety 11/08/18 11:30 11/08/18 20:00 Meperidine HCl (Demerol) 25 mg Q5M PRN IVP Shivering.May repeat x 1 11/08/18 11:30 11/08/18 20:00 Metformin HCl (Glucophage) 500 mg BID ORAL 11/07/18 09:00 12/07/18 08:59 11/07/18 08:17 Metoclopramide HCl (Reglan) 10 mg Q1H PRN IVP Nausea & Vomiting 11/08/18 11:30 11/08/18 20:00 Midazolam HCl (Versed 2mg/2ml vial) 1 mg Q15M PRN IVP For Anxiety 11/08/18 11:30 11/08/18 20:00 Ondansetron HCl (Zofran) 4 mg Q1H PRN IVP Nausea & Vomiting 11/08/18 11:30 11/08/18 20:00 Oxycodone/ Acetaminophen (Percocet 5-325) 1 tab Q1H PRN ORAL Severe Pain (Pain Scale 7-10) 11/08/18 11:30 11/08/18 20:00 Last 24 Hour Vital Signs Date Time Temp Pulse Resp B/P (MAP) Pulse Ox O2 Delivery O2 Flow Rate FiO2 11/08/18 08:00 53 11/08/18 08:00 98.3 62 15 139/56 (83) 98 11/08/18 04:00 55 11/08/18 04:00 97.6 69 18 125/76 (92) 93 11/08/18 00:00 97.1 74 18 123/78 (93) 93 11/08/18 00:00 56 11/07/18 21:00 Room Air 11/07/18 20:00 62 11/07/18 20:00 97.2 66 16 120/68 (85) 93 11/07/18 16:00 63 11/07/18 16:00 97.1 62 18 125/70 (88) 97 11/07/18 12:00 96.9 81 18 100/69 (79) 96 11/07/18 12:00 87 11/07/18 09:00 Room Air 11/07/18 08:00 70 11/07/18 08:00 97.3 60 18 127/57 (80) 99 11/07/18 04:00 43 11/07/18 04:00 97.4 65 16 144/75 (98) 99 11/07/18 00:00 66 11/07/18 00:00 97.5 67 18 121/82 (95) 100 11/06/18 21:00 Room Air 11/06/18 20:00 97.5 57 18 158/71 (100) 96 11/06/18 16:00 48 11/06/18 16:00 96.4 50 18 108/60 (76) 94 11/06/18 12:00 55 8/3/19 12:00 97.3 52 18 127/63 (84) 96 Intake and Output 11/07/18 11/08/18 18:59 06:59 Intake Total 270 ml 810 ml Output Total 450 ml 1 ml Balance -180 ml 809 ml Intake Oral 270 ml 50 ml IV Total 760 ml Output Urine Total 450 ml 1 ml # Voids 1 4 Labs Test 11/05/18 15:50 11/06/18 06:39 11/07/18 06:25 11/07/18 06:26 White Blood Count 6.7 K/UL (4.8-10.8) 5.2 K/UL (4.8-10.8) 5.4 K/UL (4.8-10.8) Red Blood Count 3.89 M/UL (4.20-5.40) 3.55 M/UL (4.20-5.40) 4.01 M/UL (4.20-5.40) Hemoglobin 11.7 G/DL (12.0-16.0) 10.5 G/DL (12.0-16.0) 11.9 G/DL (12.0-16.0) Hematocrit 34.7 % (37.0-47.0) 32.7 % (37.0-47.0) 36.3 % (37.0-47.0) Mean Corpuscular Volume 89 FL (80-99) 92 FL (80-99) 91 FL (80-99) Mean Corpuscular Hemoglobin 30.0 PG (27.0-31.0) 29.6 PG (27.0-31.0) 29.7 PG (27.0-31.0) Mean Corpuscular Hemoglobin Concent 33.6 G/DL (32.0-36.0) 32.1 G/DL (32.0-36.0) 32.8 G/DL (32.0-36.0) Red Cell Distribution Width 12.7 % (11.6-14.8) 13.3 % (11.6-14.8) 13.2 % (11.6-14.8) Platelet Count 183 K/UL (150-450) 161 K/UL (150-450) 185 K/UL (150-450) Mean Platelet Volume 6.9 FL (6.5-10.1) 6.2 FL (6.5-10.1) 6.7 FL (6.5-10.1) Neutrophils (%) (Auto) 67.8 % (45.0-75.0) 60.8 % (45.0-75.0) 64.6 % (45.0-75.0) Lymphocytes (%) (Auto) 23.0 % (20.0-45.0) 23.5 % (20.0-45.0) 18.0 % (20.0-45.0) Monocytes (%) (Auto) 7.4 % (1.0-10.0) 11.4 % (1.0-10.0) 14.3 % (1.0-10.0) Eosinophils (%) (Auto) 0.8 % (0.0-3.0) 3.2 % (0.0-3.0) 2.6 % (0.0-3.0) Basophils (%) (Auto) 1.0 % (0.0-2.0) 1.2 % (0.0-2.0) 0.6 % (0.0-2.0) Prothrombin Time 10.0 SEC (9.30-11.50) Prothromb Time International Ratio 0.9 (0.9-1.1) Activated Partial Thromboplast Time 28 SEC (23-33) Urine Color Yellow Urine Appearance Clear Urine pH 5 (4.5-8.0) Urine Specific Bieber 1.020 (1.005-1.035) Urine Protein Negative (NEGATIVE) Urine Glucose (UA) Negative (NEGATIVE) Urine Ketones 2+ (NEGATIVE) Urine Blood Negative (NEGATIVE) Urine Nitrite Negative (NEGATIVE) Urine Bilirubin Negative (NEGATIVE) Urine Urobilinogen 1 MG/DL (0.0-1.0) Urine Leukocyte Esterase Negative (NEGATIVE) Sodium Level 145 MMOL/L (136-145) 142 MMOL/L (136-145) 144 MMOL/L (136-145) Potassium Level 3.7 MMOL/L (3.5-5.1) 3.5 MMOL/L (3.5-5.1) 3.7 MMOL/L (3.5-5.1) Chloride Level 104 MMOL/L (98-107) 105 MMOL/L (98-107) 105 MMOL/L (98-107) Carbon Dioxide Level 36 MMOL/L (21-32) 34 MMOL/L (21-32) 31 MMOL/L (21-32) Anion Gap 5 mmol/L (5-15) 4 mmol/L (5-15) 8 mmol/L (5-15) Blood Urea Nitrogen 23 mg/dL (7-18) 20 mg/dL (7-18) 15 mg/dL (7-18) Creatinine 1.0 MG/DL (0.55-1.30) 0.8 MG/DL (0.55-1.30) 0.7 MG/DL (0.55-1.30) Estimat Glomerular Filtration Rate mL/min (>60) mL/min (>60) mL/min (>60) Glucose Level 91 MG/DL (74-106) 63 MG/DL (74-106) 90 MG/DL (74-106) Hemoglobin A1c 5.4 % (4.3-6.0) 6.3 % (4.3-6.0) Lactic Acid Level 1.10 mmol/L (0.4-2.0) Calcium Level 9.7 MG/DL (8.5-10.1) 9.3 MG/DL (8.5-10.1) 9.4 MG/DL (8.5-10.1) Phosphorus Level 3.3 MG/DL (2.5-4.9) Magnesium Level 1.6 MG/DL (1.8-2.4) Total Bilirubin 0.4 MG/DL (0.2-1.0) 0.4 MG/DL (0.2-1.0) Aspartate Amino Transf (AST/SGOT) 21 U/L (15-37) 19 U/L (15-37) Alanine Aminotransferase (ALT/SGPT) 11 U/L (12-78) 11 U/L (12-78) Alkaline Phosphatase 55 U/L (46-116) 48 U/L (46-116) Total Creatine Kinase 217 U/L (26-308) Creatine Kinase MB 3.9 NG/ML (0.0-3.6) Creatine Kinase MB Relative Index 1.7 Troponin I 0.006 ng/mL (0.000-0.056) 0.011 ng/mL (0.000-0.056) Pro-B-Type Natriuretic Peptide 61 pg/mL (0-125) Total Protein 6.8 G/DL (6.4-8.2) 5.9 G/DL (6.4-8.2) Albumin 3.0 G/DL (3.4-5.0) 2.7 G/DL (3.4-5.0) Globulin 3.8 g/dL 3.2 g/dL Albumin/Globulin Ratio 0.8 (1.0-2.7) 0.8 (1.0-2.7) Lipase 81 U/L (73-393) Thyroid Stimulating Hormone (TSH) 1.438 uiU/mL (0.358-3.740) Ferritin 563 NG/ML (8-388) Iron Level 37 ug/dL (50-175) Total Iron Binding Capacity 170 ug/dL (250-450) Percent Iron Saturation 22 % (15-50) Unsaturated Iron Binding 133 ug/dL (112-346) Vitamin B12 Level 862 PG/ML (193-986) Folate 13.0 NG/ML (8.6-58.9) Test 11/07/18 11:30 11/08/18 06:18 White Blood Count 3.8 K/UL (4.8-10.8) Red Blood Count 3.77 M/UL (4.20-5.40) Hemoglobin 11.3 G/DL (12.0-16.0) Hematocrit 34.4 % (37.0-47.0) Mean Corpuscular Volume 91 FL (80-99) Mean Corpuscular Hemoglobin 29.9 PG (27.0-31.0) Mean Corpuscular Hemoglobin Concent 32.7 G/DL (32.0-36.0) Red Cell Distribution Width 12.9 % (11.6-14.8) Platelet Count 184 K/UL (150-450) Mean Platelet Volume 6.8 FL (6.5-10.1) Neutrophils (%) (Auto) 59.1 % (45.0-75.0) Lymphocytes (%) (Auto) 26.1 % (20.0-45.0) Monocytes (%) (Auto) 12.1 % (1.0-10.0) Eosinophils (%) (Auto) 2.2 % (0.0-3.0) Basophils (%) (Auto) 0.6 % (0.0-2.0) Prothrombin Time 10.0 SEC (9.30-11.50) Prothromb Time International Ratio 0.9 (0.9-1.1) Sodium Level 143 MMOL/L (136-145) Potassium Level 3.5 MMOL/L (3.5-5.1) Chloride Level 107 MMOL/L (98-107) Carbon Dioxide Level 33 MMOL/L (21-32) Anion Gap 3 mmol/L (5-15) Blood Urea Nitrogen 8 mg/dL (7-18) Creatinine 0.7 MG/DL (0.55-1.30) Estimat Glomerular Filtration Rate mL/min (>60) Glucose Level 74 MG/DL (74-106) Calcium Level 9.2 MG/DL (8.5-10.1) Height (Feet): 5 Height (Inches): 4.00 Weight (Pounds): 109 Objective Physical Exam: Vitals: reviewed General: NAD Neck: non-tender, normal alignment Chest: normal breath sounds b.l Cv: normal peripheral pulses, normal rate Abd: normal bowel sounds, soft, nontender Extremities: normal range of motion Frank Rogers MD Nov 08, 2018 11:56
[2018-11-08] MEDS ORDERED: Propofol 200mg/20ml IV ONE (12:30)
[2018-11-08] MEDS ORDERED: Lidocaine 1% MPF 10mg/ml 5ml ONE (12:30)
[2018-11-08] MEDS ORDERED: Glycopyrrolate 0.2mg/ml 1ml Vial ONE (12:30)
[2018-11-08] MEDS ORDERED: Atropine Sulfate 0.4mg/ml inj ONE (12:30)
[2018-11-08] MEDS ORDERED: LR 1000ml ONE (12:30)
[2018-11-08] MEDS ORDERED: NS 500ML IVPB ONE (12:45)
--- NOTE | 2018-11-08 12:59 | Immediate Post-Op Evaluation ---
Immediate Post-Op Evalulation Immediate Post-Op Evalulation Procedure: PEG Date of Evaluation: Nov 08, 2018 Time of Evaluation: 13:37 IV Fluids: 400 LR Blood Products: 0 Estimated Blood Loss: 3 Urinary Output: 0 Blood Pressure Systolic: 105 Blood Pressure Diastolic: 65 Pulse Rate: 89 Respiratory Rate: 16 O2 Sat by Pulse Oximetry: 100 Temperature (Fahrenheit): 97.5 Pain Score (1-10): 2 Nausea: No Vomiting: No Complications 0 Patient Status: awake, reacts, patent, none Hydration Status: adequate Smith Prakash MD Nov 08, 2018 12:59
--- NOTE | 2018-11-08 13:02 | 48 Hour Post Anesthesia Eval ---
Post Anesthesia Evaluation Procedure: PEG Date of Evaluation: Nov 08, 2018 Time of Evaluation: 15:48 Blood Pressure Systolic: 121 0: 79 Pulse Rate: 78 Respiratory Rate: 18 Temperature (Fahrenheit): 97.6 O2 Sat by Pulse Oximetry: 100 Airway: patent Nausea: No Vomiting: No Pain Intensity: 2 Hydration Status: adequate Cardiopulmonary Status: Stable Mental Status/LOC: patient returned to baseline Follow-up Care/Observations: 0 Post-Anesthesia Complications: 0 Follow-up care needed: N/A Smith Prakash MD Nov 08, 2018 13:01
[2018-11-08] MEDS ORDERED: cefOXitin 1gm Inj ONE (13:12)
--- NOTE | 2018-11-08 13:17 | Endoscopy Procedure Note ---
Endoscopy Procedure Note General Indication for Procedure: dysphagia Procedures Performed: EGD, PEG Operative Findings/Diagnosis: same Specimen: none Pt Tolerated Procedure Well: Yes Estimated Blood Loss: none Anesthesia Anesthesiologist: vita Anesthesia: MAC Inserted Devices Implant(s) used?: No GI Core Measures 50 yrs or older w/o bx or poly: Not Applicable 10yrs. F/U recommended: Not Applicable Chino Jeff MD Nov 08, 2018 13:17
--- NOTE | 2018-11-08 13:33 | Cardiac Electrophysiology PN ---
Assessment/Plan Assessment/Plan 1. Weakness. Ruled out for myocardial infarction. EKGs are bradycardic. No significant ST-T wave abnormality. The patient refused echocardiogram. The patient is getting IV hydration. 2. Hypotension, resolved with IV fluids, likely dehydrated. 3. Failure to thrive. S/P PEG placement by Dr Jeff today THERON RN Subjective Subjective Confused in NAD. In SR. S/P PEG by Dr Jeff today Objective Last 24 Hour Vital Signs Date Time Temp Pulse Resp B/P (MAP) Pulse Ox O2 Delivery O2 Flow Rate FiO2 11/08/18 13:23 78 18 100 11/08/18 13:22 89 16 100 11/08/18 12:00 98.2 59 15 143/62 (89) 98 11/08/18 09:00 Room Air 11/08/18 08:00 53 11/08/18 08:00 98.3 62 15 139/56 (83) 98 11/08/18 04:00 55 11/08/18 04:00 97.6 69 18 125/76 (92) 93 11/08/18 00:00 97.1 74 18 123/78 (93) 93 11/08/18 00:00 56 11/07/18 21:00 Room Air 11/07/18 20:00 62 11/07/18 20:00 97.2 66 16 120/68 (85) 93 11/07/18 16:00 63 11/07/18 16:00 97.1 62 18 125/70 (88) 97 Intake and Output 11/07/18 11/08/18 18:59 06:59 Intake Total 270 ml 810 ml Output Total 450 ml 1 ml Balance -180 ml 809 ml Intake Oral 270 ml 50 ml IV Total 760 ml Output Urine Total 450 ml 1 ml # Voids 1 4 Laboratory Tests Test 11/08/18 06:18 White Blood Count 3.8 K/UL (4.8-10.8) L Red Blood Count 3.77 M/UL (4.20-5.40) L Hemoglobin 11.3 G/DL (12.0-16.0) L Hematocrit 34.4 % (37.0-47.0) L Mean Corpuscular Volume 91 FL (80-99) Mean Corpuscular Hemoglobin 29.9 PG (27.0-31.0) Mean Corpuscular Hemoglobin Concent 32.7 G/DL (32.0-36.0) Red Cell Distribution Width 12.9 % (11.6-14.8) Platelet Count 184 K/UL (150-450) Mean Platelet Volume 6.8 FL (6.5-10.1) Neutrophils (%) (Auto) 59.1 % (45.0-75.0) Lymphocytes (%) (Auto) 26.1 % (20.0-45.0) Monocytes (%) (Auto) 12.1 % (1.0-10.0) H Eosinophils (%) (Auto) 2.2 % (0.0-3.0) Basophils (%) (Auto) 0.6 % (0.0-2.0) Prothrombin Time 10.0 SEC (9.30-11.50) Prothromb Time International Ratio 0.9 (0.9-1.1) Sodium Level 143 MMOL/L (136-145) Potassium Level 3.5 MMOL/L (3.5-5.1) Chloride Level 107 MMOL/L (98-107) Carbon Dioxide Level 33 MMOL/L (21-32) H Anion Gap 3 mmol/L (5-15) L Blood Urea Nitrogen 8 mg/dL (7-18) Creatinine 0.7 MG/DL (0.55-1.30) Estimat Glomerular Filtration Rate mL/min (>60) Glucose Level 74 MG/DL (74-106) Calcium Level 9.2 MG/DL (8.5-10.1) Hepatitis A IgM Antibody Pending Hepatitis B Surface Antigen Pending Hepatitis B Core IgM Antibody Pending Hepatitis C Antibody Pending HIV (1&2) Antibody Rapid Negative (NEGATIVE) Microbiology Date/Time Source Procedure Growth Status 11/05/18 16:00 Blood Blood Culture - Preliminary NO GROWTH AFTER 48 HOURS Resulted 11/05/18 15:50 Blood Blood Culture - Preliminary NO GROWTH AFTER 48 HOURS Resulted 11/05/18 16:00 Nasal Nares MRSA Culture - Final NO METHICILLIN RESISTANT STAPH AUREUS... Complete 11/05/18 16:00 Rectum VRE Culture - Final NO VANCOMYCIN RESISTANT ENTEROCOCCUS ... Complete 11/05/18 16:00 Rectum - Final NO CARBAPENEM-RESISTANT ENTEROBACTERI... Complete Objective HEAD AND NECK: No JVD. LUNGS: Coarse rhonchi. CARDIOVASCULAR: Regular S1 and S2 with no gallop or murmur. ABDOMEN: Soft.NEW PEG in place EXTREMITIES: No pitting edema. Michael Main MD Nov 08, 2018 13:33
--- NOTE | 2018-11-08 13:50 | NUR ---
NURSE NOTES:WOUND CARE NOTES:Pt presented on admission with partially opened DTPI sacrum. Base of wound indurated ,purple with red tinged borders. (L)5.5cm x (W)7cm.Small opening at sacrococcygeal area (L)0.8cm x (W)0.5cm. Biofilm at base of wound .borders are macerated. Small amt non-odorous serous exudate noted. Both heels are soft but blanchable. Wounds discussed with family at bedside. Dtr informed of potential risks for further skin decline, and wound prevention protocols being implemented to prevent further skin breakdown. Tx.Plan: Apply Triad paste to sacrum . Cover with Optifoam drsg. Change every 3 days and prn. Apply Triad paste to bilat ischial areas with each incontinence care APM/GLORIA Mattress overlay. Reposition at least every 2hours or as tolerated. Off-load heels with pillow.
--- NOTE | 2018-11-08 14:07 | NUR ---
NURSE NOTES: pt came back from surgery and is sleeping comfortably. Pt in stable condition on recyclable materials collector no signs of cardiac or respiratory distress. Pt has a new peg, and has abdominal binding. Surgery dressing is intact not bleeding. Will continue to monitor pt. Bed in lowest position and locked, Call light next to pt.
--- NOTE | 2018-11-08 19:45 | NUR ---
NURSE NOTES: Received report from CHIKIS Hernandez. Patient in bed awake showing no signs of acute distress. Respiration even and no labored on 2L O2 NC. No sob noted. Pt. noted with peg tube, patent and intact, no bleeding, abd. dressing intact, running Vital AF 1.2 @ 25cc/hr, goal 55/hr. No residual noted. IV noted on Left hand 22g on D5NS @ 70cc/hr. Call light within reach. Bed in lowest position, side rail padded, seizure precaution observed. Wheels locked and alarm on. All needs attended and met. Will continue plan of car.
--- NOTE | 2018-11-08 20:12 | NUR ---
NURSE NOTES: ordered a P-200 bed for pt. due to DTI.
--- NOTE | 2018-11-08 20:13 | NUR ---
HAND-OFF: Report given to Susan DIOP. pt in stable condition tolerating feeding from new peg. p200 bed ordered.
--- NOTE | 2018-11-08 20:29 | NUR ---
HAND-OFF: Report given to Lino/rn. pt in stable condition.
--- NOTE | 2018-11-08 21:00 | Procedure Note ---
DATE OF PROCEDURE: 11/08/2018 SURGEON: Chino Jeff M.D. PROCEDURE: Upper endoscopy with PEG placement. ANESTHESIA: Per Dr. Smith Prakash. INSTRUMENT: Olympus adult flexible upper endoscope. INDICATION: Dysphagia and failure to thrive. REASON FOR PROCEDURE: The procedure, risks, benefits, and possible consequences, including hemorrhage, aspiration, perforation and infection, and alternative treatments, were explained to the patient/legal guardian by Dr. Chino Jeff and the patient/legal guardian understood and accepted these risks. PROCEDURE IN DETAIL: After informed consent was obtained and the patient was adequately sedated, Olympus upper endoscope was advanced from the mouth into the second portion of the duodenum and retroflexion was performed in the stomach. Then under endoscopic guidance and under sterile condition, a 20-[place] pull type of G-tube was successfully placed in the epigastric area. The distance from tip of the tube to skin was about 2-1/2 cm in size. The patient tolerated the procedure very well without any complication. SUMMARY OF FINDINGS: Status post successful PEG placement. RECOMMENDATIONS: 1. Abdominal binder. 2. Elevate the head of the bed at all times. 3. G-tube flush. 4. G-tube care. 5. Start tube feeding later today. 6. The patient received a dose of antibiotics. I want to thank, Dr. Cole, for this kind referral. Chino Jeff M.D. DR: MICHAEL JOB#: [id number] CC: Marvin Cole M.D.; Fax#: [phone]
--- NOTE | 2018-11-08 22:59 | General Progress Note ---
Assessment/Plan Problem List: (1) Dehydration ICD Codes: E86.0 - Dehydration SNOMED: 52818471 (2) General weakness ICD Codes: R53.1 - Weakness SNOMED: 19949149 (3) Failure to thrive in adult ICD Codes: R62.7 - Adult failure to thrive SNOMED: 030295715 (4) Bradycardia ICD Codes: R00.1 - Bradycardia, unspecified SNOMED: 15206248 Status: progressing Assessment/Plan: to tele for bradycardia dehydration improving poor appetite reviewed chart and labs amd meds weak hr improving Subjective ROS Limited/Unobtainable: Yes Allergies: Coded Allergies: No Known Allergies (Unverified , 11/05/18) Objective Last 24 Hour Vital Signs Date Time Temp Pulse Resp B/P (MAP) Pulse Ox O2 Delivery O2 Flow Rate FiO2 11/08/18 21:00 Room Air 11/08/18 20:00 97.3 80 16 123/78 (93) 100 11/08/18 20:00 88 11/08/18 16:00 75 11/08/18 16:00 97.0 75 19 112/61 (78) 100 11/08/18 13:46 97.8 80 14 125/72 100 Nasal Cannula 3 11/08/18 13:36 80 15 129/70 100 Simple Mask 6 11/08/18 13:31 82 19 120/72 100 Simple Mask 6 11/08/18 13:26 97.5 88 16 105/65 100 Simple Mask 6 11/08/18 13:23 78 18 100 11/08/18 13:22 89 16 100 11/08/18 12:00 41 11/08/18 12:00 98.2 59 15 143/62 (89) 98 11/08/18 09:00 Room Air 11/08/18 09:00 Room Air 11/08/18 08:00 53 11/08/18 08:00 98.3 62 15 139/56 (83) 98 11/08/18 04:00 55 11/08/18 04:00 97.6 69 18 125/76 (92) 93 11/08/18 00:00 97.1 74 18 123/78 (93) 93 11/08/18 00:00 56 Intake and Output 11/07/18 11/08/18 19:00 07:00 Intake Total 270 ml 880 ml Output Total 450 ml 1 ml Balance -180 ml 879 ml Intake Oral 270 ml 50 ml IV Total 830 ml Output Urine Total 450 ml 1 ml # Voids 1 4 Laboratory Tests 11/08/18 06:18: White Blood Count 3.8L, Red Blood Count 3.77L, Hemoglobin 11.3L, Hematocrit 34.4L, Mean Corpuscular Volume 91, Mean Corpuscular Hemoglobin 29.9, Mean Corpuscular Hemoglobin Concent 32.7, Red Cell Distribution Width 12.9, Platelet Count 184, Mean Platelet Volume 6.8, Neutrophils (%) (Auto) 59.1, Lymphocytes (% ) (Auto) 26.1, Monocytes (%) (Auto) 12.1H, Eosinophils (%) (Auto) 2.2, Basophils (%) (Auto) 0.6, Prothrombin Time 10.0, Prothromb Time International Ratio 0.9, Sodium Level 143, Potassium Level 3.5, Chloride Level 107, Carbon Dioxide Level 33H, Anion Gap 3L, Blood Urea Nitrogen 8, Creatinine 0.7, Estimat Glomerular Filtration Rate , Glucose Level 74, Calcium Level 9.2, Hepatitis A IgM Antibody [Pending], Hepatitis B Surface Antigen [Pending], Hepatitis B Core IgM Antibody [Pending], Hepatitis C Antibody [Pending], HIV (1&2) Antibody Rapid Negative Height (Feet): 5 Height (Inches): 4.00 Weight (Pounds): 109 General Appearance: confused Neck: normal alignment Cardiovascular: normal rate Respiratory/Chest: lungs clear Marvin Cole MD Nov 08, 2018 22:59
[2018-11-09] VITALS: BP 164/66
[2018-11-09 04:00] VITALS: BP 106/56
[2018-11-09] MEDS: NovoLOG Insulin Flexpen SUBQ SCH ×4 (05:55→23:17)
[2018-11-09] MEDS: D5 1/2NS 1,000 ML IV SCH ×2 (06:21→21:21)
--- NOTE | 2018-11-09 07:30 | NUR ---
HAND-OFF: Report given to CHIKIS Alvarado.
--- NOTE | 2018-11-09 07:35 | NUR ---
NURSE NOTES: received pt. stopped GT at 0740 for ABD ultrasound today. pt is resting on the bed. no s/s of pain and no sob
[2018-11-09 08:00] VITALS: BP 116/62
[2018-11-09] MEDS: metFORMIN 500mg tab ORAL SCH ×2 (09:06→17:10)
[2018-11-09] MEDS: Docusate 250mg cap ORAL SCH (09:06)
--- NOTE | 2018-11-09 09:13 | Hematology/Onc Progress Note ---
Assessment/Plan Assessment/Plan Assessment and Recs: # Failure to thrive (FTT) - decreased bmi and low protein, could be related to decreased protein/food intake --> have ordered for cea level --> will also obtain q3d caloric counts --> may consider mirtazapine as appetite stimulant --> s/p peg 11/08/18 ts ongoing # Anemia of chronic disease due to underlying chronic medical issues, multifactorial --> Anemia workup has been ordered, rule out gi bleed --> No evidence of hemolysis is noted, peripheral smear has been reviewed. --> Hgb goal >7. Transfuse prn. --> Epogen or iron at this time is not particularly indicated --> Medications have been reviewed --> low threshold for gi evaluation in case has occult + # Leukopenia - with decrease in wbc --> hepatitis and hiv neg --> smear reviewed shows no schistocytes --> meds reviewed --> us abd pending # General weakness --> as per renal recs, on ivf # AMS does not appear to have uti # Hypotension -> was given ivf --> better The timing of this note does not necessarily reflect the time of the patient was seen. GREATLY APPRECIATE CONSULTATION. Subjective Constitutional: Denies: no symptoms, chills, fever, malaise, weakness, other HEENT: Denies: no symptoms, eye pain, blurred vision, tearing, double vision, ear pain, ear discharge, nose pain, nose congestion, throat pain, throat swelling, mouth pain, mouth swelling, other Cardiovascular: Denies: no symptoms, chest pain, edema, irregular heart rate, lightheadedness, palpitations, syncope, other Respiratory: Denies: no symptoms, cough, shortness of breath, SOB with excertion, SOB at rest, sputum, wheezing, other Gastrointestinal/Abdominal: Denies: no symptoms, abdomen distended, abdominal pain, black stools, tarry stools, blood in stool, constipated, diarrhea, difficulty swallowing, nausea, poor appetite, poor fluid intake, rectal bleeding , vomiting, other Genitourinary: Denies: no symptoms, burning, discharge, frequency, flank pain, hematuria, incontinence, pain, urgency, other Neurologic/Psychiatric: Denies: no symptoms, anxiety, depressed, emotional problems, headache, numbness, paresthesia, pre-existing deficit, seizure, tingling, tremors, weakness, other Endocrine: Denies: no symptoms, excessive sweating, flushing, intolerance to cold, intolerance to heat, increased hunger, increased thirst, increased urine, unexplained weight gain, unexplained weight loss, other Allergies: Coded Allergies: No Known Allergies (Unverified , 11/05/18) Subjective 11/08: no events, no bleeding noted, peg for today, lytes reviewed 11/09: abd us for today, no f/c, no night sweats reported Objective Objective Current Medications Medications (Trade) Dose Ordered Sig/Sheri Route PRN Reason Start Time Stop Time Status Last Admin Dose Admin Acetaminophen (Tylenol) 650 mg Q4H PRN ORAL Mild Pain/Temp > 100 11/07/18 04:15 12/05/18 20:14 Dextrose (Dextrose 50%) 25 ml Q30M PRN IV Hypoglycemia 11/07/18 01:00 12/05/18 20:29 Dextrose (Dextrose 50%) 50 ml Q30M PRN IV Hypoglycemia 11/07/18 01:00 12/05/18 20:29 Dextrose/Sodium Chloride 1,000 ml @ 70 mls/hr [id number] IV 11/07/18 00:45 12/06/18 11:29 11/09/18 06:21 Docusate Sodium (Colace) 250 mg DAILY ORAL 11/07/18 09:00 12/06/18 08:59 11/09/18 09:06 Insulin Aspart (NovoLOG) BEFORE MEALS AND HS SUBQ 11/07/18 06:30 12/05/18 20:59 11/09/18 05:55 Metformin HCl (Glucophage) 500 mg BID ORAL 11/07/18 09:00 12/07/18 08:59 11/09/18 09:06 Last 24 Hour Vital Signs Date Time Temp Pulse Resp B/P (MAP) Pulse Ox O2 Delivery O2 Flow Rate FiO2 11/09/18 08:00 98.3 86 20 116/62 (80) 98 11/09/18 04:00 98.9 86 18 106/56 (73) 100 11/09/18 04:00 94 11/09/18 00:00 64 11/09/18 00:00 98.3 70 18 164/66 (98) 100 11/08/18 21:00 Room Air 11/08/18 20:00 97.3 80 16 123/78 (93) 100 11/08/18 20:00 88 11/08/18 16:00 75 11/08/18 16:00 97.0 75 19 112/61 (78) 100 11/08/18 13:46 97.8 80 14 125/72 100 Nasal Cannula 3 11/08/18 13:36 80 15 129/70 100 Simple Mask 6 11/08/18 13:31 82 19 120/72 100 Simple Mask 6 11/08/18 13:26 97.5 88 16 105/65 100 Simple Mask 6 11/08/18 13:23 78 18 100 11/08/18 13:22 89 16 100 11/08/18 12:00 41 11/08/18 12:00 98.2 59 15 143/62 (89) 98 11/08/18 09:00 Room Air 11/08/18 09:00 Room Air 11/08/18 08:00 53 11/08/18 08:00 98.3 62 15 139/56 (83) 98 11/08/18 04:00 55 11/08/18 04:00 97.6 69 18 125/76 (92) 93 11/08/18 00:00 97.1 74 18 123/78 (93) 93 11/08/18 00:00 56 11/07/18 21:00 Room Air 11/07/18 20:00 62 11/07/18 20:00 97.2 66 16 120/68 (85) 93 11/07/18 16:00 63 11/07/18 16:00 97.1 62 18 125/70 (88) 97 11/07/18 12:00 96.9 81 18 100/69 (79) 96 11/07/18 12:00 87 Intake and Output 11/08/18 11/09/18 19:00 07:00 Intake Total 500 ml 657.166 ml Balance 500 ml 657.166 ml IV Total 500 ml 617.166 ml Tube Feeding 40 ml # Voids 6 3 # Bowel Movements 1 Labs Test 11/07/18 06:25 11/07/18 06:26 11/07/18 11:30 11/08/18 06:18 Ferritin 563 NG/ML (8-388) White Blood Count 5.4 K/UL (4.8-10.8) 3.8 K/UL (4.8-10.8) Red Blood Count 4.01 M/UL (4.20-5.40) 3.77 M/UL (4.20-5.40) Hemoglobin 11.9 G/DL (12.0-16.0) 11.3 G/DL (12.0-16.0) Hematocrit 36.3 % (37.0-47.0) 34.4 % (37.0-47.0) Mean Corpuscular Volume 91 FL (80-99) 91 FL (80-99) Mean Corpuscular Hemoglobin 29.7 PG (27.0-31.0) 29.9 PG (27.0-31.0) Mean Corpuscular Hemoglobin Concent 32.8 G/DL (32.0-36.0) 32.7 G/DL (32.0-36.0) Red Cell Distribution Width 13.2 % (11.6-14.8) 12.9 % (11.6-14.8) Platelet Count 185 K/UL (150-450) 184 K/UL (150-450) Mean Platelet Volume 6.7 FL (6.5-10.1) 6.8 FL (6.5-10.1) Neutrophils (%) (Auto) 64.6 % (45.0-75.0) 59.1 % (45.0-75.0) Lymphocytes (%) (Auto) 18.0 % (20.0-45.0) 26.1 % (20.0-45.0) Monocytes (%) (Auto) 14.3 % (1.0-10.0) 12.1 % (1.0-10.0) Eosinophils (%) (Auto) 2.6 % (0.0-3.0) 2.2 % (0.0-3.0) Basophils (%) (Auto) 0.6 % (0.0-2.0) 0.6 % (0.0-2.0) Sodium Level 144 MMOL/L (136-145) 143 MMOL/L (136-145) Potassium Level 3.7 MMOL/L (3.5-5.1) 3.5 MMOL/L (3.5-5.1) Chloride Level 105 MMOL/L (98-107) 107 MMOL/L (98-107) Carbon Dioxide Level 31 MMOL/L (21-32) 33 MMOL/L (21-32) Anion Gap 8 mmol/L (5-15) 3 mmol/L (5-15) Blood Urea Nitrogen 15 mg/dL (7-18) 8 mg/dL (7-18) Creatinine 0.7 MG/DL (0.55-1.30) 0.7 MG/DL (0.55-1.30) Estimat Glomerular Filtration Rate mL/min (>60) mL/min (>60) Glucose Level 90 MG/DL (74-106) 74 MG/DL (74-106) Hemoglobin A1c 6.3 % (4.3-6.0) Calcium Level 9.4 MG/DL (8.5-10.1) 9.2 MG/DL (8.5-10.1) Iron Level 37 ug/dL (50-175) Total Iron Binding Capacity 170 ug/dL (250-450) Percent Iron Saturation 22 % (15-50) Unsaturated Iron Binding 133 ug/dL (112-346) Vitamin B12 Level 862 PG/ML (193-986) Folate 13.0 NG/ML (8.6-58.9) Carcinoembryonic Antigen 3.2 ng/mL (0.0-4.7) Prothrombin Time 10.0 SEC (9.30-11.50) Prothromb Time International Ratio 0.9 (0.9-1.1) Hepatitis A IgM Antibody Negative (Negative) Hepatitis B Surface Antigen Negative (Negative) Hepatitis B Core IgM Antibody Negative (Negative) Hepatitis C Antibody <0.1 s/co ratio HIV (1&2) Antibody Rapid Negative (NEGATIVE) Height (Feet): 5 Height (Inches): 4.00 Weight (Pounds): 109 Objective Physical Exam: Vitals: reviewed General: NAD Neck: non-tender, normal alignment Chest: normal breath sounds b.l Cv: normal peripheral pulses, normal rate Abd: normal bowel sounds, soft, nontender ++ peg Extremities: normal range of motion Frank Rogers MD Nov 09, 2018 09:13
--- NOTE | 2018-11-09 10:20 | GI Progress Note ---
Assessment/Plan Problems: (1) Failure to thrive in adult ICD Codes: R62.7 - Adult failure to thrive SNOMED: 735816419 (2) Bradycardia ICD Codes: R00.1 - Bradycardia, unspecified SNOMED: 85732790 (3) General weakness ICD Codes: R53.1 - Weakness SNOMED: 68950937 (4) Dehydration ICD Codes: E86.0 - Dehydration SNOMED: 70705008 Status: progressing Status Narrative Discussed with Dr. Jeff. Assessment/Plan SUMMARY OF FINDINGS: Status post successful PEG placement. RECOMMENDATIONS: G-tube feedings per RD GT site care daily and as needed Elevate head of bed at all times Supportive care PRN transfusions PPI Reglan for GI motility Follow labs The patient was seen and examined at bedside and all new and available data was reviewed in the patients chart. I agree with the above findings, impression and plan. (Patient seen earlier today. Signature stamp does not reflect patient encounter time.). - Chino Jeff MD Subjective Subjective limited Objective Last 24 Hour Vital Signs Date Time Temp Pulse Resp B/P (MAP) Pulse Ox O2 Delivery O2 Flow Rate FiO2 11/09/18 09:00 Nasal Cannula 2.0 11/09/18 08:00 98.3 86 20 116/62 (80) 98 11/09/18 07:47 80 11/09/18 04:00 98.9 86 18 106/56 (73) 100 11/09/18 04:00 94 11/09/18 00:00 64 11/09/18 00:00 98.3 70 18 164/66 (98) 100 11/08/18 21:00 Room Air 11/08/18 20:00 97.3 80 16 123/78 (93) 100 11/08/18 20:00 88 11/08/18 16:00 75 11/08/18 16:00 97.0 75 19 112/61 (78) 100 11/08/18 13:46 97.8 80 14 125/72 100 Nasal Cannula 3 11/08/18 13:36 80 15 129/70 100 Simple Mask 6 11/08/18 13:31 82 19 120/72 100 Simple Mask 6 11/08/18 13:26 97.5 88 16 105/65 100 Simple Mask 6 11/08/18 13:23 78 18 100 11/08/18 13:22 89 16 100 11/08/18 12:00 41 11/08/18 12:00 98.2 59 15 143/62 (89) 98 Intake and Output 11/08/18 11/09/18 19:00 07:00 Intake Total 500 ml 657.166 ml Balance 500 ml 657.166 ml IV Total 500 ml 617.166 ml Tube Feeding 40 ml # Voids 6 3 # Bowel Movements 1 Height (Feet): 5 Height (Inches): 4.00 Weight (Pounds): 109 General Appearance: no apparent distress Cardiovascular: normal rate Extremities: non-tender Jason Betts NP Nov 09, 2018 10:20
--- NOTE | 2018-11-09 11:00 | NUR ---
CASE MANAGEMENT NOTES PATIENT HAS BEEN REFERRED TO: [facility] AND HAS DOUGIE ACCEPTED BACK TO: ROOM# 11-B USP S/W KELLI AT [facility] AWAITING ON CLEARANCE TO D/C PATIENT
--- NOTE | 2018-11-09 11:41 | Cardiac Electrophysiology PN ---
Assessment/Plan Assessment/Plan 1. Weakness. Ruled out for myocardial infarction. Still bradycardic at times.No heart block. No significant ST-T wave abnormality. Refused echocardiogram. Still getting IV hydration. Reordered echo. 2. Hypotension, resolved with IV fluids, likely dehydrated. 3. Failure to thrive. S/P PEG placement by Dr Jeff 4. NIDDM on Metformin 5. R/O cirrhosis. Abd US per Dr Hitesh CRUMP RN Subjective Subjective Confused in NAD. In SR, occasionally gets tenisha down to 40s. S/P PEG by Dr Jeff 11/08/18 Objective Last 24 Hour Vital Signs Date Time Temp Pulse Resp B/P (MAP) Pulse Ox O2 Delivery O2 Flow Rate FiO2 11/09/18 09:00 Nasal Cannula 2.0 11/09/18 08:00 98.3 86 20 116/62 (80) 98 11/09/18 07:47 80 11/09/18 04:00 98.9 86 18 106/56 (73) 100 11/09/18 04:00 94 11/09/18 00:00 64 11/09/18 00:00 98.3 70 18 164/66 (98) 100 11/08/18 21:00 Room Air 11/08/18 20:00 97.3 80 16 123/78 (93) 100 11/08/18 20:00 88 11/08/18 16:00 75 11/08/18 16:00 97.0 75 19 112/61 (78) 100 11/08/18 13:46 97.8 80 14 125/72 100 Nasal Cannula 3 11/08/18 13:36 80 15 129/70 100 Simple Mask 6 11/08/18 13:31 82 19 120/72 100 Simple Mask 6 11/08/18 13:26 97.5 88 16 105/65 100 Simple Mask 6 11/08/18 13:23 78 18 100 11/08/18 13:22 89 16 100 11/08/18 12:00 41 11/08/18 12:00 98.2 59 15 143/62 (89) 98 Intake and Output 11/08/18 11/09/18 18:59 06:59 Intake Total 570 ml 657.166 ml Balance 570 ml 657.166 ml IV Total 570 ml 617.166 ml Tube Feeding 40 ml # Voids 6 3 # Bowel Movements 1 Objective HEAD AND NECK: No JVD. LUNGS: Coarse rhonchi. CARDIOVASCULAR: Regular S1 and S2 with no gallop or murmur. ABDOMEN: Soft.NEW PEG in place EXTREMITIES: No pitting edema. Michael Main MD Nov 09, 2018 11:41
[2018-11-09 11:44] VITALS: BP 120/51
--- NOTE | 2018-11-09 14:10 | Diagnostic Imaging Report ---
Indication: Elevated liver function tests Technique: Grayscale and duplex Doppler imaging of the abdomen performed. Comparison: None Findings: The liver is unremarkable. Doppler interrogation of the main portal vein shows patency with hepatopedal, monophasic flow. There is no biliary ductal dilatation identified. Gallbladder is unremarkable. CBD is 8 mm. There demonstrated part of the pancreas, aorta and IVC show no definite abnormalities. There are bilateral renal cysts of varying size. In the left kidney there is a 3.8 cm cyst present. 1 cm cyst noted in the right kidney. There is no hydronephrosis. IMPRESSION: No acute findings identified. Bilateral renal cysts
--- NOTE | 2018-11-09 15:00 | NUR ---
NURSE NOTES: Dr. Cole made aware that patient is Sb again, Dr. Main is aware. Dr. Cole said to cancel discharge today.
[2018-11-09 16:00] VITALS: BP 136/57
--- NOTE | 2018-11-09 18:39 | Nephrology Progress Note ---
Assessment/Plan Assessment 1. Failure to thrive. 2. Prerenal azotemia. 3. Dehydration 4. hypokalemia 5. Diabetes. Plan plan continue ivf monitoring renal function avoid NSAID replace electrolyte as need it start feeding Subjective Subjective awake not fallowing command s/p PEG Objective Objective Last 24 Hour Vital Signs Date Time Temp Pulse Resp B/P (MAP) Pulse Ox O2 Delivery O2 Flow Rate FiO2 11/09/18 16:00 97.7 52 18 136/57 (83) 100 11/09/18 15:41 44 11/09/18 11:44 97.4 58 18 120/51 (74) 95 11/09/18 11:40 48 11/09/18 09:00 Nasal Cannula 2.0 11/09/18 08:00 98.3 86 20 116/62 (80) 98 11/09/18 07:47 80 11/09/18 04:00 98.9 86 18 106/56 (73) 100 11/09/18 04:00 94 11/09/18 00:00 64 11/09/18 00:00 98.3 70 18 164/66 (98) 100 11/08/18 21:00 Room Air 11/08/18 20:00 97.3 80 16 123/78 (93) 100 11/08/18 20:00 88 Intake and Output 11/08/18 11/09/18 18:59 06:59 Intake Total 570 ml 657.166 ml Balance 570 ml 657.166 ml IV Total 570 ml 617.166 ml Tube Feeding 40 ml # Voids 6 3 # Bowel Movements 1 Height (Feet): 5 Height (Inches): 3 Weight (Pounds): 109 Objective HEAD AND NECK: Bitemporal wasting. Extraocular movements intact. Pupils are reactive to light and accommodation. Mucous membranes are dry. LUNGS: Clear to auscultation. CARDIAC: Regular rate and rhythm. S1 and S2 normal. No murmurs or rubs. ABDOMEN: Soft, nontender, nondistended. EXTREMITIES: No edema. No clubbing. No cyanosis. Maday Moreira MD Nov 09, 2018 18:39
--- NOTE | 2018-11-09 18:42 | Cardiology Report ---
APPROVED REPORT EXAM: Two-dimensional and M-mode echocardiogram with Doppler and color Doppler. INDICATION Bradycardia M-Mode DIMENSIONS IVSd1.0 (0.7-1.1cm)Left Atrium (MM)2.8 (1.6-4.0cm) LVDd4.1 (3.5-5.6cm)Aortic Root2.9 (2.0-3.7cm) PWd1.0 (0.7-1.1cm)Aortic Cusp Exc.2.2 (1.5-2.0cm) IVSs1.4 cm LVDs2.6 (2.5-4.0cm) PWs1.1 cm Technically difficult study due to poor acoustical windows. Normal left ventricular chamber size, systolic function and wall motion to extent visualized. Left ventricular ejection fraction estimated to be 65-70%. No evidence of left ventricular hypertrophy by 2-D. No evidence of pericardial fat or effusion. All other cardiac chamber sizes are within normal limits. Aortic valve calcification with normal cusp excursion . Mildly thickened mitral valve leaflets with normal excursion. Mild mitral annulus and aortic root calcification. Pulmonic valve not well visualized. IVC at size 1.9 cm without physiologic collapse . A color flow and spectral Doppler study was performed and revealed: Mild aortic insufficiency . Mitral diastolic velocities suggest reduced left ventricular relaxation c/w mild LV diastolic dysfunction (Grade I ) Trace mitral regurgitation. Trace tricuspid regurgitation. Tricuspid systolic velocities suggests peak right ventricular systolic pressure of 20mmHg.
--- NOTE | 2018-11-09 19:10 | NUR ---
NURSE NOTES: Received report from Jenny DIOP, pt. in bed awake, alert to name, no signs or symptoms of acute cardiac or respiratory distress noted, bed in lowest position and call light within easy reach, bed alarm on, side rails up x's3 and safety brakes engaged, G tube running Vital @55cc/hr- residual noted, pt. appears to be resting comfortably and appears to be clean and dry, pt. appears to be sating well on 2L nasal cannula no distress noted, Left hand 22G IV intact and paten- running D5NS @70cc/hr- IV intact and patent, safety measures continued, will continue with plan of care. Addendum: 11/09/18 at 1934 by DARIAN ARMENTA RN RN side rails padded for seizure precautions- no seizure activity noted upon assessment.
--- NOTE | 2018-11-09 19:15 | NUR ---
HAND-OFF: Report given to Kalli Pittman RN.
[2018-11-09 20:00] VITALS: BP 133/76
--- NOTE | 2018-11-09 22:47 | General Progress Note ---
Assessment/Plan Problem List: (1) Dehydration ICD Codes: E86.0 - Dehydration SNOMED: 42555668 (2) General weakness ICD Codes: R53.1 - Weakness SNOMED: 89642203 (3) Failure to thrive in adult ICD Codes: R62.7 - Adult failure to thrive SNOMED: 843816885 (4) Bradycardia ICD Codes: R00.1 - Bradycardia, unspecified SNOMED: 38841341 Status: progressing Assessment/Plan: dr harvey didnt clear for dc due to severe bradycardia dehydration improving obs needs hydration as well Subjective ROS Limited/Unobtainable: Yes Allergies: Coded Allergies: No Known Allergies (Unverified , 11/05/18) Objective Last 24 Hour Vital Signs Date Time Temp Pulse Resp B/P (MAP) Pulse Ox O2 Delivery O2 Flow Rate FiO2 11/09/18 21:00 Nasal Cannula 2.0 11/09/18 20:00 70 11/09/18 20:00 97.4 74 20 133/76 (95) 96 11/09/18 16:00 97.7 52 18 136/57 (83) 100 11/09/18 15:41 44 11/09/18 11:44 97.4 58 18 120/51 (74) 95 11/09/18 11:40 48 11/09/18 09:00 Nasal Cannula 2.0 11/09/18 08:00 98.3 86 20 116/62 (80) 98 11/09/18 07:47 80 11/09/18 04:00 98.9 86 18 106/56 (73) 100 11/09/18 04:00 94 11/09/18 00:00 64 11/09/18 00:00 98.3 70 18 164/66 (98) 100 Intake and Output 11/08/18 11/09/18 19:00 07:00 Intake Total 500 ml 657.166 ml Balance 500 ml 657.166 ml IV Total 500 ml 617.166 ml Tube Feeding 40 ml # Voids 6 3 # Bowel Movements 1 Height (Feet): 5 Height (Inches): 3 Weight (Pounds): 109 General Appearance: confused Respiratory/Chest: lungs clear Abdomen: soft Marvin Cole MD Nov 09, 2018 22:47
[2018-11-10] VITALS: BP 136/96
[2018-11-10 03:55] VITALS: BP 105/68
[2018-11-10] MEDS: NovoLOG Insulin Flexpen SUBQ SCH ×3 (05:03→17:08)
[2018-11-10 06:29] LABS: BASOPHILS % (AUTO) 0.3 % (0.0-2.0); EOSINOPHILS % (AUTO) 1.6 % (0.0-3.0); HEMATOCRIT 31.1 % (37.0-47.0); LYMPHOCYTES % (AUTO) 20.4 % (20.0-45.0); MEAN CORPUSCULAR VOLUME 92 FL (80-99); MONOCYTES % (AUTO) 12.3 % (1.0-10.0); NEUTROPHILS % (AUTO) 65.5 % (45.0-75.0); PLATELET COUNT 185 K/UL (150-450); WHITE BLOOD COUNT 4.9 K/UL (4.8-10.8)
[2018-11-10 07:01] LABS: ANION GAP 4 mmol/L (5-15); BLOOD UREA NITROGEN 13 mg/dL (7-18); CALCIUM 8.5 MG/DL (8.5-10.1); CARBON DIOXIDE 33 MMOL/L (21-32); CHLORIDE 108 MMOL/L (98-107); CREATININE 0.7 MG/DL (0.55-1.30); PHOSPHORUS 2.1 MG/DL (2.5-4.9); POTASSIUM 3.5 MMOL/L (3.5-5.1); SODIUM 145 MMOL/L (136-145)
--- NOTE | 2018-11-10 07:15 | NUR ---
HAND-OFF: Report given to Usama DIOP, pt. remains stable and no signs of distress noted. Addendum: 11/10/18 at 0736 by DARIAN ARMENTA RN RN nurse aware to f/u on abnormal labs Magnesium trending down.
--- NOTE | 2018-11-10 07:20 | NUR ---
NURSE NOTES: Report received from Anyi DIOP.Pt resting quietly in bed asleep noted no resp distress,on 2 L NC,no signs of pain or discomfort SB on the monitor,GTF Vital AF 1.2 at 55 ml/hr ,turned off for residual >100 ml,pt incontinent of urine,IV site to LH intact with IVF D5 1/2 NS at 70ml/hr, skin warm and dry,SR up x2 HOB elevated,bed lock in lowest position,will continue with plans of care.
[2018-11-10 08:00] VITALS: BP 102/74
--- NOTE | 2018-11-10 09:00 | NUR ---
NURSE NOTES: MYRTLE Tuttle at bedside ,assessed pt's skin to sacral.drsg changed.
[2018-11-10] MEDS: metFORMIN 500mg tab ORAL SCH ×2 (09:44→18:12)
[2018-11-10] MEDS: Docusate 250mg cap ORAL SCH (09:44)
--- NOTE | 2018-11-10 10:12 | GI Progress Note ---
Assessment/Plan Problems: (1) Failure to thrive in adult ICD Codes: R62.7 - Adult failure to thrive SNOMED: 622847079 (2) Bradycardia ICD Codes: R00.1 - Bradycardia, unspecified SNOMED: 65299037 (3) General weakness ICD Codes: R53.1 - Weakness SNOMED: 41856668 (4) Dehydration ICD Codes: E86.0 - Dehydration SNOMED: 53101731 Status: stable, unchanged Status Narrative Discussed with Dr. Jeff. Assessment/Plan SUMMARY OF FINDINGS: Status post successful PEG placement. RECOMMENDATIONS: G-tube feedings per RD GT site care daily and as needed Elevate head of bed at all times Supportive care PRN transfusions PPI Reglan for GI motility Follow labs The patient was seen and examined at bedside and all new and available data was reviewed in the patients chart. I agree with the above findings, impression and plan. (Patient seen earlier today. Signature stamp does not reflect patient encounter time.). - Chino Jeff MD Subjective Subjective limited Objective Last 24 Hour Vital Signs Date Time Temp Pulse Resp B/P (MAP) Pulse Ox O2 Delivery O2 Flow Rate FiO2 11/10/18 08:00 98.3 69 20 102/74 (83) 95 11/10/18 08:00 44 11/10/18 04:00 63 11/10/18 03:55 98.0 80 18 105/68 (80) 97 11/10/18 00:00 85 11/10/18 00:00 98.2 80 18 136/96 (109) 97 11/09/18 21:00 Nasal Cannula 2.0 11/09/18 20:00 70 11/09/18 20:00 97.4 74 20 133/76 (95) 96 11/09/18 16:00 97.7 52 18 136/57 (83) 100 11/09/18 15:41 44 11/09/18 11:44 97.4 58 18 120/51 (74) 95 11/09/18 11:40 48 Intake and Output 11/09/18 11/10/18 19:00 07:00 Intake Total 1305.5 ml 1760 ml Balance 1305.5 ml 1760 ml Free Water 300 ml IV Total 885.5 ml 800 ml Tube Feeding 220 ml 660 ml Other 200 ml # Voids 2 Laboratory Tests Test 11/10/18 04:52 White Blood Count 4.9 K/UL (4.8-10.8) Red Blood Count 3.40 M/UL (4.20-5.40) L Hemoglobin 10.0 G/DL (12.0-16.0) L Hematocrit 31.1 % (37.0-47.0) L Mean Corpuscular Volume 92 FL (80-99) Mean Corpuscular Hemoglobin 29.6 PG (27.0-31.0) Mean Corpuscular Hemoglobin Concent 32.3 G/DL (32.0-36.0) Red Cell Distribution Width 13.0 % (11.6-14.8) Platelet Count 185 K/UL (150-450) Mean Platelet Volume 6.0 FL (6.5-10.1) L Neutrophils (%) (Auto) 65.5 % (45.0-75.0) Lymphocytes (%) (Auto) 20.4 % (20.0-45.0) Monocytes (%) (Auto) 12.3 % (1.0-10.0) H Eosinophils (%) (Auto) 1.6 % (0.0-3.0) Basophils (%) (Auto) 0.3 % (0.0-2.0) Sodium Level 145 MMOL/L (136-145) Potassium Level 3.5 MMOL/L (3.5-5.1) Chloride Level 108 MMOL/L (98-107) H Carbon Dioxide Level 33 MMOL/L (21-32) H Anion Gap 4 mmol/L (5-15) L Blood Urea Nitrogen 13 mg/dL (7-18) Creatinine 0.7 MG/DL (0.55-1.30) Estimat Glomerular Filtration Rate mL/min (>60) Glucose Level 142 MG/DL (74-106) H Calcium Level 8.5 MG/DL (8.5-10.1) Phosphorus Level 2.1 MG/DL (2.5-4.9) L Magnesium Level 1.5 MG/DL (1.8-2.4) L Height (Feet): 5 Height (Inches): 3 Weight (Pounds): 138 General Appearance: no apparent distress Cardiovascular: normal rate Respiratory/Chest: normal breath sounds Abdominal Exam: GT site - c/d/i Jason Betts NP Nov 10, 2018 10:11
--- NOTE | 2018-11-10 11:19 | Cardiac Electrophysiology PN ---
Assessment/Plan Assessment/Plan 1. Weakness. Ruled out for myocardial infarction. Still bradycardic at times.No heart block. No significant ST-T wave abnormality. Echocardiogram EF 55%. Still getting IV hydration. 2. Hypotension, resolved with IV fluids, likely dehydrated. 3. Failure to thrive. S/P PEG placement by Dr Jeff 4. NIDDM on Metformin 5. R/O cirrhosis. Abd US per Dr Hitesh CRUMP RN OK to DC Subjective Subjective Confused in NAD. In SR, occasionally gets tenisha down to high 40s. S/P PEG by Dr Jeff 11/08/18 Objective Last 24 Hour Vital Signs Date Time Temp Pulse Resp B/P (MAP) Pulse Ox O2 Delivery O2 Flow Rate FiO2 11/10/18 09:00 Nasal Cannula 2.0 11/10/18 09:00 Nasal Cannula 2.0 11/10/18 08:00 98.3 69 20 102/74 (83) 95 11/10/18 08:00 44 11/10/18 04:00 63 11/10/18 03:55 98.0 80 18 105/68 (80) 97 11/10/18 00:00 85 11/10/18 00:00 98.2 80 18 136/96 (109) 97 11/09/18 21:00 Nasal Cannula 2.0 11/09/18 20:00 70 11/09/18 20:00 97.4 74 20 133/76 (95) 96 11/09/18 16:00 97.7 52 18 136/57 (83) 100 11/09/18 15:41 44 11/09/18 11:44 97.4 58 18 120/51 (74) 95 11/09/18 11:40 48 Intake and Output 11/09/18 11/10/18 19:00 07:00 Intake Total 1305.5 ml 1760 ml Balance 1305.5 ml 1760 ml Free Water 300 ml IV Total 885.5 ml 800 ml Tube Feeding 220 ml 660 ml Other 200 ml # Voids 2 Laboratory Tests Test 11/10/18 04:52 White Blood Count 4.9 K/UL (4.8-10.8) Red Blood Count 3.40 M/UL (4.20-5.40) L Hemoglobin 10.0 G/DL (12.0-16.0) L Hematocrit 31.1 % (37.0-47.0) L Mean Corpuscular Volume 92 FL (80-99) Mean Corpuscular Hemoglobin 29.6 PG (27.0-31.0) Mean Corpuscular Hemoglobin Concent 32.3 G/DL (32.0-36.0) Red Cell Distribution Width 13.0 % (11.6-14.8) Platelet Count 185 K/UL (150-450) Mean Platelet Volume 6.0 FL (6.5-10.1) L Neutrophils (%) (Auto) 65.5 % (45.0-75.0) Lymphocytes (%) (Auto) 20.4 % (20.0-45.0) Monocytes (%) (Auto) 12.3 % (1.0-10.0) H Eosinophils (%) (Auto) 1.6 % (0.0-3.0) Basophils (%) (Auto) 0.3 % (0.0-2.0) Sodium Level 145 MMOL/L (136-145) Potassium Level 3.5 MMOL/L (3.5-5.1) Chloride Level 108 MMOL/L (98-107) H Carbon Dioxide Level 33 MMOL/L (21-32) H Anion Gap 4 mmol/L (5-15) L Blood Urea Nitrogen 13 mg/dL (7-18) Creatinine 0.7 MG/DL (0.55-1.30) Estimat Glomerular Filtration Rate mL/min (>60) Glucose Level 142 MG/DL (74-106) H Calcium Level 8.5 MG/DL (8.5-10.1) Phosphorus Level 2.1 MG/DL (2.5-4.9) L Magnesium Level 1.5 MG/DL (1.8-2.4) L Objective HEAD AND NECK: No JVD. LUNGS: Coarse rhonchi. CARDIOVASCULAR: Regular S1 and S2 with no gallop or murmur. ABDOMEN: Soft.NEW PEG in place EXTREMITIES: No pitting edema. Michael Main MD Nov 10, 2018 11:19
[2018-11-10] MEDS ORDERED: Potassium Phosphate 30 MM in NS 275 ML IV ONE (11:30)
--- NOTE | 2018-11-10 11:35 | NUR ---
NURSE NOTES: Dr Main at bedside,seen pt Okayed discharge.
[2018-11-10 12:00] VITALS: BP 114/79
--- NOTE | 2018-11-10 13:18 | Nephrology Progress Note ---
Assessment/Plan Assessment 1. Failure to thrive. 2. Prerenal azotemia. 3. Dehydration 4. hypokalemia 5. Diabetes. Plan plan replace mg continue ivf monitoring renal function avoid NSAID replace electrolyte as need it start feeding Subjective ROS Limited/Unobtainable: Yes Constitutional: Reports: no symptoms Subjective awake not fallowing command Objective Objective Last 24 Hour Vital Signs Date Time Temp Pulse Resp B/P (MAP) Pulse Ox O2 Delivery O2 Flow Rate FiO2 11/10/18 09:00 Nasal Cannula 2.0 11/10/18 09:00 Nasal Cannula 2.0 11/10/18 08:00 98.3 69 20 102/74 (83) 95 11/10/18 08:00 44 11/10/18 04:00 63 11/10/18 03:55 98.0 80 18 105/68 (80) 97 11/10/18 00:00 85 11/10/18 00:00 98.2 80 18 136/96 (109) 97 11/09/18 21:00 Nasal Cannula 2.0 11/09/18 20:00 70 11/09/18 20:00 97.4 74 20 133/76 (95) 96 11/09/18 16:00 97.7 52 18 136/57 (83) 100 11/09/18 15:41 44 Intake and Output 11/09/18 11/10/18 19:00 07:00 Intake Total 1305.5 ml 1760 ml Balance 1305.5 ml 1760 ml Free Water 300 ml IV Total 885.5 ml 800 ml Tube Feeding 220 ml 660 ml Other 200 ml # Voids 2 Laboratory Tests 11/10/18 04:52: White Blood Count 4.9, Red Blood Count 3.40L, Hemoglobin 10.0L, Hematocrit 31.1L , Mean Corpuscular Volume 92, Mean Corpuscular Hemoglobin 29.6, Mean Corpuscular Hemoglobin Concent 32.3, Red Cell Distribution Width 13.0, Platelet Count 185, Mean Platelet Volume 6.0L, Neutrophils (%) (Auto) 65.5, Lymphocytes ( %) (Auto) 20.4, Monocytes (%) (Auto) 12.3H, Eosinophils (%) (Auto) 1.6, Basophils (%) (Auto) 0.3, Sodium Level 145, Potassium Level 3.5, Chloride Level 108H, Carbon Dioxide Level 33H, Anion Gap 4L, Blood Urea Nitrogen 13, Creatinine 0.7, Estimat Glomerular Filtration Rate , Glucose Level 142H, Calcium Level 8.5, Phosphorus Level 2.1L, Magnesium Level 1.5L Height (Feet): 5 Height (Inches): 3 Weight (Pounds): 138 Objective HEAD AND NECK: Bitemporal wasting. Extraocular movements intact. Pupils are reactive to light and accommodation. Mucous membranes are dry. LUNGS: Clear to auscultation. CARDIAC: Regular rate and rhythm. S1 and S2 normal. No murmurs or rubs. ABDOMEN: Soft, nontender, nondistended. EXTREMITIES: No edema. No clubbing. No cyanosis. Maday Moreira MD Nov 10, 2018 13:18
--- NOTE | 2018-11-10 13:42 | Diagnostic Imaging Report ---
APPROVED REPORT CPT Code: 04633 Present Symptoms Comments: Screening Technically difficult study due to patient has BLE contractures of the hip and knee. BILATERAL: Imaging reveals a patent deep venous system bilaterally. There is no evidence of thrombus within the femoral, popliteal or tibial segments. The greater saphenous veins are also within normal limits. Doppler indicates normal spontaneous flow within these segments.
[2018-11-10] MEDS: D5 1/2NS 1,000 ML IV SCH (14:33)
[2018-11-10] MEDS ORDERED: Tubing IV Secondary IV ONE (15:52)
[2018-11-10] MEDS ORDERED: D5 1/2NS 1000ml IV ONE (15:52)
[2018-11-10 16:00] VITALS: BP 117/93
--- NOTE | 2018-11-10 16:22 | Hematology/Onc Progress Note ---
Assessment/Plan Assessment/Plan Assessment and Recs: # Failure to thrive (FTT) - decreased bmi and low protein, could be related to decreased protein/food intake, peg done here --> cea 3.2 --> will also obtain q3d caloric counts --> may consider mirtazapine as appetite stimulant --> s/p peg 11/08/18 tFs ongoing # Anemia of chronic disease due to underlying chronic medical issues, multifactorial --> Anemia workup reviewed, and cw/ acd --> No evidence of hemolysis is noted, peripheral smear has been reviewed. --> Hgb goal >7. Transfuse prn. --> Epogen or iron at this time is not particularly indicated --> Medications have been reviewed --> low threshold for gi evaluation in case has occult + # Leukopenia - with decrease in wbc --> hepatitis and hiv neg --> smear reviewed shows no schistocytes --> meds reviewed --> us abd with b/l renal cysts only # General weakness --> as per renal recs, on ivf # AMS does not appear to have uti # Hypotension -> was given ivf --> better The timing of this note does not necessarily reflect the time of the patient was seen. GREATLY APPRECIATE CONSULTATION. Subjective Respiratory: Denies: no symptoms, cough, shortness of breath, SOB with excertion, SOB at rest, sputum, wheezing, other Gastrointestinal/Abdominal: Denies: no symptoms, abdomen distended, abdominal pain, black stools, tarry stools, blood in stool, constipated, diarrhea, difficulty swallowing, nausea, poor appetite, poor fluid intake, rectal bleeding , vomiting, other Genitourinary: Denies: no symptoms, burning, discharge, frequency, flank pain, hematuria, incontinence, pain, urgency, other Neurologic/Psychiatric: Denies: no symptoms, anxiety, depressed, emotional problems, headache, numbness, paresthesia, pre-existing deficit, seizure, tingling, tremors, weakness, other Endocrine: Denies: no symptoms, excessive sweating, flushing, intolerance to cold, intolerance to heat, increased hunger, increased thirst, increased urine, unexplained weight gain, unexplained weight loss, other Hematologic/Lymphatic: Denies: no symptoms, anemia, easy bleeding, easy bruising, adenopathy, other Allergies: Coded Allergies: No Known Allergies (Unverified , 11/05/18) Subjective 11/08: no events, no bleeding noted, peg for today, lytes reviewed 11/09: abd us for today, no f/c, no night sweats reported 11/10: tired, no f/c, no night sweats, hgb 10, abd us reviewed, mag repleted Objective Objective Current Medications Medications (Trade) Dose Ordered Sig/Sheri Route PRN Reason Start Time Stop Time Status Last Admin Dose Admin Acetaminophen (Tylenol) 650 mg Q4H PRN ORAL Mild Pain/Temp > 100 11/07/18 04:15 12/05/18 20:14 Dextrose (Dextrose 50%) 25 ml Q30M PRN IV Hypoglycemia 11/07/18 01:00 12/05/18 20:29 Dextrose (Dextrose 50%) 50 ml Q30M PRN IV Hypoglycemia 11/07/18 01:00 12/05/18 20:29 Dextrose/Sodium Chloride 1,000 ml @ 70 mls/hr [id number] IV 11/07/18 00:45 12/06/18 11:29 11/09/18 21:21 Docusate Sodium (Colace) 250 mg DAILY ORAL 11/07/18 09:00 12/06/18 08:59 11/10/18 09:44 Insulin Aspart (NovoLOG) EVERY 6 HOURS SUBQ 11/09/18 12:00 12/05/18 20:59 11/10/18 05:03 Metformin HCl (Glucophage) 500 mg BID ORAL 11/07/18 09:00 12/07/18 08:59 11/10/18 09:44 Potassium Phosphate 30 mm/ Sodium Chloride 285 ml @ 47.5 mls/hr ONCE ONCE IV 11/10/18 11:30 11/10/18 17:29 11/10/18 13:04 Last 24 Hour Vital Signs Date Time Temp Pulse Resp B/P (MAP) Pulse Ox O2 Delivery O2 Flow Rate FiO2 11/10/18 12:00 97.7 63 20 114/79 (91) 100 11/10/18 12:00 53 11/10/18 09:00 Nasal Cannula 2.0 11/10/18 09:00 Nasal Cannula 2.0 11/10/18 08:00 98.3 69 20 102/74 (83) 95 11/10/18 08:00 44 11/10/18 04:00 63 11/10/18 03:55 98.0 80 18 105/68 (80) 97 11/10/18 00:00 85 11/10/18 00:00 98.2 80 18 136/96 (109) 97 11/09/18 21:00 Nasal Cannula 2.0 11/09/18 20:00 70 11/09/18 20:00 97.4 74 20 133/76 (95) 96 11/09/18 16:00 97.7 52 18 136/57 (83) 100 11/09/18 15:41 44 11/09/18 11:44 97.4 58 18 120/51 (74) 95 11/09/18 11:40 48 11/09/18 09:00 Nasal Cannula 2.0 11/09/18 08:00 98.3 86 20 116/62 (80) 98 11/09/18 07:47 80 11/09/18 04:00 98.9 86 18 106/56 (73) 100 11/09/18 04:00 94 11/09/18 00:00 64 11/09/18 00:00 98.3 70 18 164/66 (98) 100 11/08/18 21:00 Room Air 11/08/18 20:00 97.3 80 16 123/78 (93) 100 11/08/18 20:00 88 Intake and Output 11/09/18 11/10/18 18:59 06:59 Intake Total 1180.5 ml 1760 ml Balance 1180.5 ml 1760 ml Free Water 300 ml IV Total 815.5 ml 800 ml Tube Feeding 165 ml 660 ml Other 200 ml # Voids 2 Labs Test 11/08/18 06:18 11/10/18 04:52 White Blood Count 3.8 K/UL (4.8-10.8) 4.9 K/UL (4.8-10.8) Red Blood Count 3.77 M/UL (4.20-5.40) 3.40 M/UL (4.20-5.40) Hemoglobin 11.3 G/DL (12.0-16.0) 10.0 G/DL (12.0-16.0) Hematocrit 34.4 % (37.0-47.0) 31.1 % (37.0-47.0) Mean Corpuscular Volume 91 FL (80-99) 92 FL (80-99) Mean Corpuscular Hemoglobin 29.9 PG (27.0-31.0) 29.6 PG (27.0-31.0) Mean Corpuscular Hemoglobin Concent 32.7 G/DL (32.0-36.0) 32.3 G/DL (32.0-36.0) Red Cell Distribution Width 12.9 % (11.6-14.8) 13.0 % (11.6-14.8) Platelet Count 184 K/UL (150-450) 185 K/UL (150-450) Mean Platelet Volume 6.8 FL (6.5-10.1) 6.0 FL (6.5-10.1) Neutrophils (%) (Auto) 59.1 % (45.0-75.0) 65.5 % (45.0-75.0) Lymphocytes (%) (Auto) 26.1 % (20.0-45.0) 20.4 % (20.0-45.0) Monocytes (%) (Auto) 12.1 % (1.0-10.0) 12.3 % (1.0-10.0) Eosinophils (%) (Auto) 2.2 % (0.0-3.0) 1.6 % (0.0-3.0) Basophils (%) (Auto) 0.6 % (0.0-2.0) 0.3 % (0.0-2.0) Prothrombin Time 10.0 SEC (9.30-11.50) Prothromb Time International Ratio 0.9 (0.9-1.1) Sodium Level 143 MMOL/L (136-145) 145 MMOL/L (136-145) Potassium Level 3.5 MMOL/L (3.5-5.1) 3.5 MMOL/L (3.5-5.1) Chloride Level 107 MMOL/L (98-107) 108 MMOL/L (98-107) Carbon Dioxide Level 33 MMOL/L (21-32) 33 MMOL/L (21-32) Anion Gap 3 mmol/L (5-15) 4 mmol/L (5-15) Blood Urea Nitrogen 8 mg/dL (7-18) 13 mg/dL (7-18) Creatinine 0.7 MG/DL (0.55-1.30) 0.7 MG/DL (0.55-1.30) Estimat Glomerular Filtration Rate mL/min (>60) mL/min (>60) Glucose Level 74 MG/DL (74-106) 142 MG/DL (74-106) Calcium Level 9.2 MG/DL (8.5-10.1) 8.5 MG/DL (8.5-10.1) Hepatitis A IgM Antibody Negative (Negative) Hepatitis B Surface Antigen Negative (Negative) Hepatitis B Core IgM Antibody Negative (Negative) Hepatitis C Antibody <0.1 s/co ratio HIV (1&2) Antibody Rapid Negative (NEGATIVE) Phosphorus Level 2.1 MG/DL (2.5-4.9) Magnesium Level 1.5 MG/DL (1.8-2.4) Height (Feet): 5 Height (Inches): 3 Weight (Pounds): 138 Objective Physical Exam: Vitals: reviewed General: NAD Neck: non-tender, normal alignment Chest: normal breath sounds b.l Cv: normal peripheral pulses, normal rate Abd: normal bowel sounds, soft, nontender ++ peg Extremities: normal range of motion Frank Rogers MD Nov 10, 2018 16:22
--- NOTE | 2018-11-10 17:40 | NUR ---
NURSE NOTES: Report called out to Toni Bowman [place],report given to Alexa Sextonupdated on pt's status,medications and tube feeding.
--- NOTE | 2018-11-10 18:27 | CDS Physician Query ---
Clarification is required for compliance, coding accuracy, and to reflect severity of illness for this patient Dear , Date: 11/10/2018 Radiology Director/CDS Name: BARTOLO Cutler 78 year old female, with electrolyte abnormality, hypotention and dehydration. AMS documented in the reporting process consultant notes. "Altered Mental Status / Confusion / ALOC" documented in Please indicate the nature and chronicity of the condition below: [] Metabolic Encephalopathy [] Toxic Encephalopathy [] Toxic - Metabolic Encephalopathy [] Encephalopathy, Other [] Dementia with Delirium [] Hypoxic encephalopathy [] Posterior reversible encephalopathy syndrome [] Other: [] Not Applicable Present on Admission: [] Yes [] No [] Clinically Undetermined Physician signature Date Please also document in your Progress Notes and/or Discharge Summary and indicate if the condition was present on admission. BAILEYD
--- NOTE | 2018-11-10 18:35 | Coder Physician Query ---
Clarification is required for compliance, coding accuracy, and to reflect severity of illness for this patient Dear Dr. Salas, Date: 11/10/2018 Early Childhood Teacher/CDS Name: Tiffany Cutler 78 year old female with failure to thrive, dehydration, BMI 24, Albumin 3.0/ 2.7, Total protein 6.8/5.9, Malnutrition documented, GI consulted for PEG Placement. Please select the most appropriate option: [] Protein/Calorie Malnutrition [] Mild [] Moderate [] Severe [] Hypoalbuminemia [] Cachexia [] Underweight [] Intestinal malabsorption [] Other [] Unable to determine [] Not Applicable Present on Admission: [] Yes [] No [] Clinically Undetermined Physician signature Date Please also document in your Progress Notes and/or Discharge Summary and indicate if the condition was present on admission. MTDD
--- NOTE | 2018-11-10 19:01 | NUR ---
NURSE NOTES: Pt discharged and out of the unit per kasie accompanied by ambulance personnel awake,in no disrtress stable.IV to LH removed ,iv site intact,no signs of infiltration noted,sacral photo taken and uploaded.
--- NOTE | 2018-11-10 19:13 | Cardiology Report ---
APPROVED REPORT EKG Measurement Heart [id number] Normal sinus rhythm Junctional ST depression, probably normal Borderline ECG
--- NOTE | 2018-11-10 19:18 | Cardiology Report ---
APPROVED REPORT EKG Measurement Heart [id number] Normal sinus rhythm Normal ECG
--- NOTE | 2018-11-11 10:23 | Discharge Summary ---
Discharge Summary Discharge Summary _ DATE OF ADMISSION: 11/05/2018 DATE OF DISCHARGE: 11/10/2018 DISCHARGED BY: Dr. Cole REASON FOR ADMISSION: 78 years old female with past medical history of diabetes mellitus, hypertension , COPD, dementia, psychosis, was refusing to eat for some time at the [facility] and subsequently was sent for evaluation. Upon evaluation vital signs were stable. Laboratory work-up revealed no leukocytosis mild anemia with hemoglobin 11.7, hematocrit 34.7. Urinalysis revealed no evidence of urinary tract infection, +2 ketones. Stable electrolytes. BUN 23, creatinine 1.0. Lactic acid 1.1. Glucose 91. Stable LFT. Troponin 0.006, pro BNP 61. EKG revealed sinus rhythm , no acute ischemic changes . Albumin 3. Chest x-ray revealed no acute cardiopulmonary pathology. Patient subsequently admitted for further management with failure to thrive , dehydration and generalized weakness . CONSULTANTS: swamper Dr. Sims GI specialist Dr. Jeff manager media relations Dr. Hennessy sales account leader/oncologist Dr. Rogers silvering department supervisor Dr. Sebastian [facility] COURSE: Patient admitted to telemetry floor. Clinical Programmer followed. Echocardiogram demonstrated preserved ejection fraction of 65 to 70% with no evidence of left ventricular hypertrophy. No evidence of wall motion abnormality. Right ventricular systolic pressure of 20. No evidence of left ventricular hypertrophy. Serial troponin were negative. Patient remained bradycardic at times, but no heart block. EKG revealed sinus bradycardia, no blocks. Patient was on the IV hydration. Hypotension resolved with IV fluids, patient likely was dehydrated. Supplemental oxygen provided as needed to keep pulse oximetry above 92%. Venous duplex bilateral lower extremity reveal no evidence of acute DVT. Handheld nebulizing therapy with bronchodilator was on board as needed. GI specialist followed. Patient undergone bedside swallow evaluation , which revealed high risk for oropharyngeal dysphagia and silent aspiration risk. Patient was encouraged to have oral intake. Minimal oral intake by patient. Daughter consented for procedure. Patient subsequently undergone successful G-tube placement. Tube feeding formula and protein supplements provided as per registered safety engineer recommendation . G-tube site care provided daily and as needed. Aspiration and reflux precaution maintained. Antiemetic were on board as needed. Patient started on PPI. Hemoglobin and hematocrit were closely monitored with goal to keep hemoglobin above 7. Prior to discharge hemoglobin 10 , hematocrit 31.1. CEA within normal range. Anemia work-up was consistent with anemia of chronic disease. Ferritin elevated 563. Abdominal ultrasound revealed no acute findings. Solutions Operator followed. Renal parameters and electrolytes were closely monitored. Patient was on the IV fluids. Magnesium , potassium and phosphorus were replaced. Nephrotoxic's were avoided. Flight Attendant seen the patient for diabetes. Diabetes appeared to be under good control. Hemoglobin A1c -6.3, at goal. Blood sugar was managed with metformin. Sliding scale of insulin was on board as needed. Supportive care provided. Patient clinically stabilized and was ready for transfer back to [facility] for continuation of care. FINAL DIAGNOSES: Acute encephalopathy Protein calorie malnutrition Dehydration with prerenal azotemia Electrolyte imbalance: hypokalemia , hypophosphatemia , hypomagnesemia Hypotension -resolved Status post PEG placement Anemia of chronic disease DISCHARGE MEDICATIONS: See Medication Reconciliation list. DISCHARGE INSTRUCTIONS: Patient was [facility] to the [facility]. Follow up with medical doctor at the facility. I have been assigned to dictate discharge summary for this account. I was not involved in the patient's management. Mandy Cornelius NP Nov 11, 2018 10:23
--- NOTE | 2018-11-11 11:48 | NUR ---
DISCHARGE SWALLOW AND SPEECH THERAPY SUMMARY: PATIENT SEEN FOR DYSPHAGIA, SEE SWALLOW EVALUATION. NOT ABLE TO COMPLETE MODIFIED BARIUM SWALLOW STUDY PRIOR TO D/C DUE TO SCHEDULING CONFLICTS. MET GOALS FOR EDUCATING AND TRAINING STAFF IN ORAL CARE AND ASPIRATION PRECAUTIONS. PLAN: F/UP WITH LEAD SEWAGE PLANT OPERATOR AT [facility] FOR SKILLED SWALLOW MANAGEMENT AND TX AND OUTPT MODIFIFED BARIUM SWALLOW STUDY.
--- NOTE | 2018-11-17 19:16 | CDS Physician Query ---
Clarification is required for compliance, coding accuracy, and to reflect severity of illness for this patient Dear Dr. Salas, Date: 11/17/2018 Canceling Machine Operator/CDS Name: BARTOLO Cutler 78 year old female, with electrolyte abnormality, hypotention and dehydration. AMS documented in the Heme/Onc, mergers and acquisitions consultant notes. "Altered Mental Status / Confusion / ALOC" documented in Please indicate the nature and chronicity of the condition below: [] Metabolic Encephalopathy [] Toxic Encephalopathy [] Toxic - Metabolic Encephalopathy [] Encephalopathy, Other [] Dementia with Delirium [] Hypoxic encephalopathy [] Posterior reversible encephalopathy syndrome [] Other: [] Not Applicable Present on Admission: [] Yes [] No [] Clinically Undetermined Physician signature Date Please also document in your Progress Notes and/or Discharge Summary and indicate if the condition was present on admission. MTDD
--- NOTE | 2018-11-17 19:25 | CDS Physician Query ---
Clarification is required for compliance, coding accuracy, and to reflect severity of illness for this patient Dear Dr. Salas, Date: 11/17/2018 Parts Counter Associate/CDS Name: Tiffany Cutler 78 year old female with failure to thrive, dehydration, BMI 24, Albumin 3.0/ 2.7, Total protein 6.8/5.9, Malnutrition documented, GI consulted for PEG Placement. Please select the most appropriate option: [] Protein/Calorie Malnutrition [] Mild [] Moderate [] Severe [] Hypoalbuminemia [] Cachexia [] Underweight [] Intestinal malabsorption [] Other [] Unable to determine [] Not Applicable Present on Admission: [] Yes [] No [] Clinically Undetermined Physician signature Date Please also document in your Progress Notes and/or Discharge Summary and indicate if the condition was present on admission. MTDD
== END 2018-11-10 19:05 | DRG 640 ==
LOC: EDBD 15:31 → EMR 16:02 → 4E 16:15 → EDBEDREQ 17:33 → 2E 22:32
PROC: 0DH63UZ Insertion of Feeding Device into Stomach, Percutaneous Approach (ICD-10-PCS; principal; 2018-11-08 12:52)
DX: E86.0 Dehydration (principal); G93.41 Metabolic encephalopathy; Z68.1 Body mass index [BMI] 19.9 or less, adult; E46 Unspecified protein-calorie malnutrition; N39.0 Urinary tract infection, site not specified; N17.9 Acute kidney failure, unspecified; G93.40 Encephalopathy, unspecified; R13.10 Dysphagia, unspecified; I95.9 Hypotension, unspecified; R62.7 Adult failure to thrive; F09 Unspecified mental disorder due to known physiological condition; I10 Essential (primary) hypertension; E11.8 Type 2 diabetes mellitus with unspecified complications; F03.90 Unspecified dementia, unspecified severity, without behavioral disturbance, psychotic disturbance, mood disturbance, and anxiety; Z79.84 Long term (current) use of oral hypoglycemic drugs; E11.9 Type 2 diabetes mellitus without complications; E78.5 Hyperlipidemia, unspecified; E87.6 Hypokalemia; J44.9 Chronic obstructive pulmonary disease, unspecified; R00.1 Bradycardia, unspecified; D63.8 Anemia in other chronic diseases classified elsewhere; E83.42 Hypomagnesemia
CPT/HCPCS: 36415; 71045; 76700; 80048; 80053; 81003; 82378; 82550; 82553; 82607; 82728; 82746; 82962; 83036; 83540; 83550; 83605; 83690; 83735; 83880; 84100; 84443; 84484; 85025; 85610; 85730; 86703; 86705; 86709; 86803; 87040; 87081; 87340; 93005; 93306; 93970; 94003; 94150; 96360; 99285; J1815